=== PATIENT | female | born 1985 | race American Indian/Alaskan Native ===

== ENCOUNTER 2016-11-11 10:08 | Emergency (ER) | payer MEDICAID ==
[2016-11-11] MEDS ORDERED: D5NS 0.2% 1,000 ML IV ONE (10:53)
--- NOTE | 2016-11-11 10:56 | Emergency Department Report ---
Chief Complaint: Sickle Cell Crisis Stated Complaint: SICKLE CELL PAIN/DIZZNESS/NAUSEA Time Seen by Provider: 11/11/16 10:52 - HPI History of Present Illness: Patient is a 31-year-old female with a history of sickle cell who presents complaining of bilateral right hip pain 1 week. Patient states she was sent to the family has been given a lot of stress and she feels like that is most profound this episode. Patient also states yesterday she started experiencing intermittent dizziness yesterday. Patient described his pain as deep pain and rates the pain 9 out of 10 intensity. Patient states port located to the left upper medial arm. Patient denies nausea/vomiting/fever/abdominal pain/chest pain shortness of breath or difficulty breathing. - ROS Review of Systems: As noted in HPI - Exam Vital Signs: Vital Signs 11/11/16 10:20 Temperature 98.0 F Pulse Rate 79 Respiratory 16 Rate Blood Pressure 119/74 O2 Sat by Pulse 99 Oximetry Physical Exam: GENERAL: Alert and oriented x3, no apparent distress, Normal Gait, atraumatic. HEAD: Head is normocephalic and a-traumatic. LUNGS: Symetrical with respiration, No wheezing, no rales or crackles, CTAB. HEART: S1, S2 present, regular rate and rhythm without murmur, no rubs, no gallops. ABDOMEN: No organomegaly was noted,Positive bowel sounds, soft, and non- distended. . Nontender to palpation on all Quadrants, NO CVA tenderness. SKIN: Warm and dry, No lesions, No ulceration or induration present. MSE screening note: Focused history and physical exam performed. Due to findings the following was ordered: ED Medical Decision Making - Lab Data Result diagrams: 11/11/16 10:57 - Medical Decision Making Vital signs stable. Patient is in no respiratory or acute distress. Patient to be seen by ED physician. ED Disposition for MSE Condition: Stable
[2016-11-11 11:16] LABS: Basophils % (Auto) 0.8 % (0.0-1.8); Eosinophils % (Auto) 2.8 % (0.0-4.3); Hematocrit 31.4 % (30.3-42.9); Hemoglobin 10.6 gm/dl (10.1-14.3); Mean Corpuscular HGB Conc 34 % (30-34); Mean Corpuscular Volume 75 fl (79-97); Platelet Count 175 K/mm3 (140-440); Red Blood Count 4.17 M/mm3 (3.65-5.03); Red Cell Distribution Width 16.4 % (13.2-15.2); Reticulocyte % 4.36 % (0.78-2.58); White Blood Count 6.4 K/mm3 (4.5-11.0)
[2016-11-11 11:18] LABS: Mean Corpuscular Hemoglobin 26 pg (28-32)
[2016-11-11] MEDS ORDERED: NACL 0.9% 1000 ML 1,000 ML IV ONE (16:58)
[2016-11-11] MEDS ORDERED: DILAUDID IV ONE ×2 (16:59→18:29)
--- NOTE | 2016-11-11 17:13 | Emergency Department Report ---
HPI - General Chief Complaint: Sickle Cell Crisis Time Seen by Provider: 11/11/16 16:53 - HPI HPI: This is a 31 year-old female presents to the emergency department with complaint of bilateral hip pain that goes down towards the legs , as well as some right arm pain, but the patient says is a sickle cell pain crisis. She says this is been going on intermittently since October 25, which is also when her grandmother recently . She denies any trauma to any of these regions. She denies any fever, chest pain, shortness of breath, nausea or vomiting. However the patient does complain of some dizziness intermittently for the past 2 days. She says that it worsens with sudden movements or going from sitting to standing. Her primary care doctor is Dr. Umaña. No recent travel or sick contacts at home. Patient is on folic acid, hydroxyurea, and has been taking Tylenol and then oral Dilaudid for her discomfort without any relief. ED Past Medical Hx - Past Medical History Hx Hypertension: No Hx Congestive Heart Failure: No Hx Diabetes: No Hx Renal Disease: No Hx Sickle Cell Disease: Yes Hx Seizures: No Hx Asthma: No Hx COPD: No - Surgical History Additional Surgical History: 2 C-sections. abdominal hernia repair. PORT LEFT UPPER ARM - Social History Smoking Status: Never Smoker Substance Use Type: Prescribed - Medications Home Medications: Home Medications Medication Instructions Recorded Confirmed Last Taken Type Folic Acid [Folvite] 1 mg PO DAILY #90 tablet 11/21/14 11/11/16 07/03/16 Rx HYDROmorphone [Dilaudid] 4 mg PO Q6H PRN #10 tablet 04/19/16 11/11/16 07/03/16 Rx oxyCODONE /ACETAMINOPHEN [Percocet 1 - 2 tab PO Q6HR PRN #14 tablet 07/22/16 Unknown Rx 5/325] ED Review of Systems ROS: Stated complaint: SICKLE CELL PAIN/DIZZNESS/NAUSEA Other details as noted in HPI Comment: All other systems reviewed and negative Constitutional: denies: chills, fever Eyes: denies: eye pain, eye discharge, vision change ENT: denies: ear pain, throat pain Respiratory: denies: cough, shortness of breath, wheezing Cardiovascular: denies: chest pain, palpitations Gastrointestinal: denies: abdominal pain, nausea, diarrhea Genitourinary: denies: urgency, dysuria, discharge Musculoskeletal: arthralgia, myalgia. denies: back pain, joint swelling Skin: denies: rash, lesions Neurological: other (dizziness). denies: headache, weakness Physical Exam - Physical Exam Vital Signs: Vital Signs 11/11/16 11/11/16 10:20 16:55 Temperature 98.0 F Pulse Rate 79 Respiratory 16 20 Rate Blood Pressure 119/74 O2 Sat by Pulse 99 Oximetry Physical Exam: GENERAL: The patient is well-developed well-nourished. HEENT: Normocephalic. Atraumatic. Extraocular motions are intact. Patient has moist mucous membranes. Pupils equal reactive to light bilaterally. No nystagmus. NECK: Supple. Trachea is midline. CHEST/LUNGS: Clear to auscultation. There is no respiratory distress noted. HEART/CARDIOVASCULAR: Regular. There is no tachycardia. There is no gallop rub or murmur. ABDOMEN: Abdomen is soft, nontender. Patient has normal bowel sounds. There is no abdominal distention. SKIN: There is no rash. There is no edema. There is no diaphoresis. NEURO: The patient is awake, alert, and oriented. The patient is cooperative. The patient has no focal neurologic deficits. The patient has normal speech and gait. Cranial nerves II through XII grossly intact. MUSCULOSKELETAL: There is no tenderness or deformity. There is no limitation range of motion. There is no evidence of acute injury. Muscle strength 5 out of 5 for upper and lower extremity bilaterally. Cap refill less than 2 seconds. Radial pulse +2 over 4 bilaterally. ED Course Vital Signs 11/11/16 11/11/16 10:20 16:55 Temperature 98.0 F Pulse Rate 79 Respiratory 16 20 Rate Blood Pressure 119/74 O2 Sat by Pulse 99 Oximetry ED Medical Decision Making - Lab Data Result diagrams: 11/11/16 10:57 11/11/16 17:15 - EKG Data -: EKG Interpreted by Ri EKG shows normal: sinus rhythm, axis, intervals, QRS complexes, ST-T waves Rate: normal - EKG Data When compared to previous EKG there are: previous EKG unavailable Interpretation: normal EKG - Medical Decision Making 31-year-old female presents the emergency department with bilateral leg pain and right arm pain that she believes is a sickle cell pain crisis. Patient's hemoglobin is 10.5 and her reticulocyte count is about 4, which is consistent with is not better than previous visits. Patient's vital signs are stable throughout her ED course including being afebrile. No focal, motor or sensory deficits. Patient's labs also show no electrolyte abnormalities and she has normal thyroid function. EKG does not show any signs of ST elevation RI, dysrhythmia or ischemia. Patient was given a few doses of pain medication and says she is feeling better. She has good follow-up with a primary care doctor. Her symptoms been going on since October 25 and she believes it could be related to the fact that she lost her grandmother recently. Nonetheless the patient does not have any significant abnormalities that appear to require inpatient admission at this time. She has pain medication at home if her pain starts return but she will return to the emergency department with any acute distress. She understands and agrees the plan. Patient was seen ambulatory in the emergency department and appears stable. - Differential Diagnosis sickle cell pain crisis, sickle cell anemia, orthostatic hypotension, verti Critical Care Time: No Critical care attestation.: If time is entered above; I have spent that time in minutes in the direct care of this critically ill patient, excluding procedure time. ED Disposition Clinical Impression: Sickle cell pain crisis, Dizziness Disposition: DISCHARGED TO HOME OR SELFCARE Is pt being admited?: No Does the pt Need Aspirin: No Condition: Good Instructions: Sickle Cell Crisis (ED), Dizziness (ED) Additional Instructions: Please follow-up with your primary care doctor in the next few days. Return to the emergency department with any worsening of your symptoms or any acute distress. Referrals: SRINIVAS UMAÑA MD [Primary Care Provider] - 3-5 Days Time of Disposition: 19:38
[2016-11-11] MEDS ORDERED: BENADRYL ONE (17:55)
[2016-11-11] MEDS ORDERED: ZOFRAN ONE (17:55)
[2016-11-11 18:01] LABS: Blood Urea Nitrogen 7 mg/dL (7-17); Calcium 8.8 mg/dL (8.4-10.2); Carbon Dioxide 23 mmol/L (22-30); Chloride 100.9 mmol/L (98-107); Glucose 83 mg/dL (65-100); Potassium 4.2 mmol/L (3.6-5.0); Sodium 138 mmol/L (137-145)
[2016-11-11] MEDS ORDERED: BENADRYL IV ONE (18:01)
[2016-11-11] MEDS ORDERED: ZOFRAN IV ONE (18:01)
[2016-11-11 18:02] LABS: Anion Gap 18 mmol/L
[2016-11-11 19:42] VITALS: BP 118/80
[2016-11-11] MEDS ORDERED: FLUSH HEPARIN IV ONE (19:50)
== END 2016-11-11 19:59 | disposition home or self-care (01) ==
LOC: ED 10:08
DX: D57.00 Hb-SS disease with crisis, unspecified (principal); R42 Dizziness and giddiness
CPT/HCPCS: 36415; 80048; 84443; 85025; 85045; 93005; 93010; 96361; 96374; 96375; 96376; 99283; J1170; J1200; J1642; J2405; J7030

== ENCOUNTER 2017-03-24 19:04 | Emergency (ER) | payer MEDICAID ==
[2017-03-24 20:42] LABS: Bacteria,Urine 1+ /HPF (Negative); Bilirubin,Urine NEG (Negative); Blood,Urine MOD (Negative); Ketones,Urine NEG (Negative); Leukocyte Esterase,Urine NEG (Negative); Mucus,Urine FEW /HPF; Nitrite,Urine NEG (Negative); Protein,Urine <15 mg/dL mg/dL (Negative); Urobilinogen,Urine < 2.0 mg/dL (<2.0)
--- NOTE | 2017-03-24 22:56 | Emergency Department Report ---
ED HPI - General Chief complaint: Urogenital-Female Stated complaint: Cramping Time Seen by Provider: 03/24/17 21:45 Source: patient Mode of arrival: Ambulatory Limitations: No Limitations - History of Present Illness Initial comments: This is a 32-year-old female well-nourished with nontoxic or ill in appearance that presents with cramping for 6 days. Patient states she may be or is having a urinary tract infection. Patient and I think a urinary test at home. Patient denies any dysuria, polyuria, vaginal bleeding , nausea vomiting, abdominal pain, pelvic pain, back pain. Patient has a history of 2 pregnancies with similar symptoms of cramping. She denies any chest pain or shortness of breath. Agrees to NSAIDs allergies. Denies any past medical hx. LMP 02/05/2017. Complaint: other (abdmoninal cramping) -: Gradual, days(s) Location: abdomen Radiation: none Severity: mild Quality: other (cramping) Consistency: intermittent Improves with: none Worsens with: none Associated symptoms: denies other symptoms. denies: nausea/vomiting, vaginal bleeding, vaginal discharge, abdominal pain, dysuria, headache, vision changes, malaise, dysparuenia, rash, seizure, shortness of breath, syncope, weakness Vaginal bleeding: none OB History - Previous Pregnancies: no complications Pre-lazaro care: none (Bc is not sure if active ) - Related Data Previous Rx's Medication Instructions Recorded Last Taken Type Folic Acid [Folvite] 1 mg PO DAILY #90 tablet 11/21/14 07/03/16 Rx HYDROmorphone [Dilaudid] 4 mg PO Q6H PRN #10 tablet 04/19/16 07/03/16 Rx oxyCODONE /ACETAMINOPHEN [Percocet 1 - 2 tab PO Q6HR PRN #14 tablet 07/22/16 Unknown Rx 5/325] Allergies Allergy/AdvReac Type Severity Reaction Status Date / Time NSAIDS (Non-Steroidal Allergy Hives Verified 11/11/16 10:27 Anti-Inflamma ED Review of Systems ROS: Stated complaint: Cramping Other details as noted in HPI Constitutional: denies: chills, fever Eyes: denies: eye pain, eye discharge, vision change ENT: denies: ear pain, throat pain Respiratory: denies: cough, shortness of breath, wheezing Cardiovascular: denies: chest pain, palpitations Endocrine: no symptoms reported Gastrointestinal: denies: abdominal pain, nausea, diarrhea Genitourinary: denies: urgency, dysuria, discharge Musculoskeletal: denies: back pain, joint swelling, arthralgia Skin: denies: rash, lesions Neurological: denies: headache, weakness, paresthesias Psychiatric: denies: anxiety, depression Hematological/Lymphatic: denies: easy bleeding, easy bruising ED Past Medical Hx - Past Medical History Hx Hypertension: No Hx Congestive Heart Failure: No Hx Diabetes: No Hx Renal Disease: No Hx Sickle Cell Disease: Yes Hx Seizures: No Hx Asthma: No Hx COPD: No - Surgical History Additional Surgical History: 2 C-sections. abdominal hernia repair. PORT LEFT UPPER ARM - Social History Smoking Status: Never Smoker Substance Use Type: None - Medications Home Medications: Home Medications Medication Instructions Recorded Confirmed Last Taken Type Folic Acid [Folvite] 1 mg PO DAILY #90 tablet 11/21/14 11/11/16 07/03/16 Rx HYDROmorphone [Dilaudid] 4 mg PO Q6H PRN #10 tablet 04/19/16 11/11/16 07/03/16 Rx oxyCODONE /ACETAMINOPHEN [Percocet 1 - 2 tab PO Q6HR PRN #14 tablet 07/22/16 Unknown Rx 5/325] ED Physical Exam - General Limitations: No Limitations General appearance: alert, in no apparent distress - Head Head exam: Present: atraumatic, normocephalic - Eye Eye exam: Present: normal appearance, PERRL, EOMI Pupils: Present: normal accommodation - ENT ENT exam: Present: normal exam, normal orophraynx, mucous membranes moist, TM's normal bilaterally, normal external ear exam - Neck Neck exam: Present: normal inspection, full ROM. Absent: tenderness, meningismus, lymphadenopathy, thyromegaly - Respiratory Respiratory exam: Present: normal lung sounds bilaterally. Absent: respiratory distress, wheezes, rales, rhonchi, stridor - Cardiovascular Cardiovascular Exam: Present: regular rate, normal rhythm, normal heart sounds. Absent: bradycardia, tachycardia, irregular rhythm, systolic murmur, diastolic murmur, rubs, gallop - GI/Abdominal GI/Abdominal exam: Present: soft, normal bowel sounds. Absent: distended, guarding, rebound, rigid, diminished bowel sounds, hyperactive bowel sounds, hypoactive bowel sounds, organomegaly, mass, bruit, pulsatile mass, hernia - Expanded GI/Abdominal Exam Expanded GI/Abdominal exam: Absent: psoas sign, obturator sign, heel tap sign, Wharton's sign, Rovsing's sign, tenderness at Mcburney's Point, ascites - Extremities Exam Extremities exam: Present: normal inspection, full ROM, normal capillary refill. Absent: tenderness, pedal edema, joint swelling, calf tenderness - Back Exam Back exam: Present: normal inspection, full ROM. Absent: tenderness, CVA tenderness (R), CVA tenderness (L), muscle spasm, paraspinal tenderness, vertebral tenderness, rash noted - Neurological Exam Neurological exam: Present: alert, oriented X3, CN II-XII intact, normal gait - Psychiatric Psychiatric exam: Present: normal affect, normal mood - Skin Skin exam: Present: warm, dry, intact, normal color. Absent: rash ED Course Vital Signs 03/24/17 20:10 Temperature 99.1 F Pulse Rate 94 H Respiratory 18 Rate Blood Pressure 129/84 O2 Sat by Pulse 100 Oximetry ED Medical Decision Making - Medical Decision Making Ed course: This is a 32-year-old female that has a positive HCG and Natanael 1- after my physical exam, a UA, HCG, and Natanael serum has been obtained 2- Patient was notified of then all the lab results. 3- Patient was instructed to f/u with her OBGYN in 24 hours. 4- at time time of discharge, the patient does not seem toxic or ill in appearance. No acute signs of distress noted. Patient agrees to discharge treatment plan of care. No further questions noted by the patient. 5- patient was instructed to observe signs and symptoms of bleeding and present report back to emergency room Critical care attestation.: If time is entered above; I have spent that time in minutes in the direct care of this critically ill patient, excluding procedure time. ED Disposition Clinical Impression: Qualifiers: Weeks of gestation: unspecified Qualified Code(s): Z33.1 - state, incidental Disposition: DISCHARGED TO HOME OR SELFCARE Is pt being admited?: No Does the pt Need Aspirin: No Condition: Stable Instructions: (ED) Additional Instructions: Observe signs and symptoms of bleeding and present report back to emergency room Follow-up with your ham trimmer in 24 hours Referrals: PRIMARY CARE, [Primary Care Provider] - 3-5 Days ALBERTO ESPINAL MD [Referring] - 3-5 Days [facility] [Outside] - 3-5 Days [facility] [Outside] - 3-5 Days Forms: Work/School Release Form(ED)
[2017-03-24 23:52] VITALS: BP 126/82
== END 2017-03-24 23:52 | disposition home or self-care (01) ==
LOC: ED 19:04
DX: Z33.1 Pregnant state, incidental (principal)
CPT/HCPCS: 36415; 81001; 81025; 84702; 84703; 99283

== ENCOUNTER 2017-06-25 20:31 | Emergency (ER) | payer MEDICAID ==
[2017-06-25] MEDS ORDERED: D5NS 0.2% 1,000 ML IV SCH (22:00)
[2017-06-25 22:09] LABS: Basophils % (Auto) 0.9 % (0.0-1.8); Eosinophils % (Auto) 3.2 % (0.0-4.3); Hematocrit 31.4 % (30.3-42.9); Hemoglobin 10.7 gm/dl (10.1-14.3); Mean Corpuscular HGB Conc 34 % (30-34); Mean Corpuscular Volume 75 fl (79-97); Platelet Count 206 K/mm3 (140-440); Red Blood Count 4.16 M/mm3 (3.65-5.03); Red Cell Distribution Width 17.4 % (13.2-15.2); Reticulocyte % 4.99 % (0.78-2.58); White Blood Count 7.9 K/mm3 (4.5-11.0)
[2017-06-25 22:11] LABS: Mean Corpuscular Hemoglobin 26 pg (28-32)
[2017-06-26] MEDS ORDERED: NACL 0.9% 1000 ML 1,000 ML IV ONE (02:14)
[2017-06-26] MEDS ORDERED: MORPHINE IV ONE ×2 (02:14→03:58)
[2017-06-26] MEDS ORDERED: ZOFRAN IV ONE (02:14)
--- NOTE | 2017-06-26 02:18 | Emergency Department Report ---
ED General Adult HPI - General Chief complaint: Sickle Cell Crisis Stated complaint: SICKLE CELL PAIN Time Seen by Provider: 06/26/17 02:04 Source: patient Mode of arrival: Ambulatory Limitations: No Limitations - History of Present Illness Initial comments: 32 years old female history of sickle cell disease coming with sickle cell crisis complaining mainly of back pain and extremity pain. Denied any nausea or vomiting no diarrhea no chest pain no other complaint. -: Gradual Location: back, upper extremity, lower extremity Severity scale (0 -10): 8 Quality: sharp - Related Data Previous Rx's Medication Instructions Recorded Last Taken Type Folic Acid [Folvite] 1 mg PO DAILY #90 tablet 11/21/14 07/03/16 Rx HYDROmorphone [Dilaudid] 4 mg PO Q6H PRN #10 tablet 04/19/16 07/03/16 Rx oxyCODONE /ACETAMINOPHEN [Percocet 1 - 2 tab PO Q6HR PRN #14 tablet 07/22/16 Unknown Rx 5/325] Ondansetron [Zofran Odt] 4 mg PO Q8HR PRN #14 tab.rapdis 06/26/17 Unknown Rx oxyCODONE /ACETAMINOPHEN [Percocet 1 tab PO Q6HR PRN #10 tablet 06/26/17 Unknown Rx 5/325] Allergies Allergy/AdvReac Type Severity Reaction Status Date / Time NSAIDS (Non-Steroidal Allergy Hives Verified 11/11/16 10:27 Anti-Inflamma ED Review of Systems ROS: Stated complaint: SICKLE CELL PAIN Other details as noted in HPI Comment: All other systems reviewed and negative Respiratory: denies: cough, shortness of breath Cardiovascular: denies: chest pain Gastrointestinal: denies: abdominal pain, nausea, vomiting, diarrhea, constipation Musculoskeletal: back pain ED Past Medical Hx - Past Medical History Previous Medical History?: Yes Hx Hypertension: No Hx Congestive Heart Failure: No Hx Diabetes: No Hx Renal Disease: No Hx Sickle Cell Disease: Yes Hx Seizures: No Hx Asthma: No Hx COPD: No - Surgical History Past Surgical History?: No Additional Surgical History: 2 C-sections. abdominal hernia repair. PORT LEFT UPPER ARM - Social History Smoking Status: Never Smoker Substance Use Type: None - Medications Home Medications: Home Medications Medication Instructions Recorded Confirmed Last Taken Type Folic Acid [Folvite] 1 mg PO DAILY #90 tablet 11/21/14 11/11/1616 Rx HYDROmorphone [Dilaudid] 4 mg PO Q6H PRN #10 tablet 04/19/16 11/11/16 07/03/16 Rx oxyCODONE /ACETAMINOPHEN [Percocet 1 - 2 tab PO Q6HR PRN #14 tablet 07/22/16 Unknown Rx 5/325] Ondansetron [Zofran Odt] 4 mg PO Q8HR PRN #14 tab.rapdis 06/26/17 Unknown Rx oxyCODONE /ACETAMINOPHEN [Percocet 1 tab PO Q6HR PRN #10 tablet 06/26/17 Unknown Rx 5/325] ED Physical Exam - General Limitations: No Limitations General appearance: alert, in no apparent distress - Head Head exam: Present: normocephalic - Eye Eye exam: Present: normal appearance - ENT ENT exam: Present: normal exam - Neck Neck exam: Present: normal inspection - Respiratory Respiratory exam: Present: normal lung sounds bilaterally. Absent: wheezes, rales, rhonchi - Cardiovascular Cardiovascular Exam: Present: tachycardia - GI/Abdominal GI/Abdominal exam: Present: soft. Absent: tenderness, guarding, rebound - Extremities Exam Extremities exam: Present: normal inspection, full ROM, normal capillary refill. Absent: tenderness - Back Exam Back exam: Present: normal inspection, full ROM. Absent: tenderness, CVA tenderness (R), CVA tenderness (L), muscle spasm, paraspinal tenderness - Neurological Exam Neurological exam: Present: alert, oriented X3, CN II-XII intact - Skin Skin exam: Present: warm, normal color ED Course Vital Signs 06/25/17 06/26/17 21:39 01:56 Temperature 99.2 F Pulse Rate 104 H Respiratory 18 14 Rate Blood Pressure 130/73 O2 Sat by Pulse 99 Oximetry - Reevaluation(s) Reevaluation #1: 06/26/17 04:34 Patient stated that she is feeling much better. I advised to follow-up with her primary care physician for further management. ED Medical Decision Making - Lab Data Result diagrams: 06/25/17 21:59 06/26/17 02:40 Critical care attestation.: If time is entered above; I have spent that time in minutes in the direct care of this critically ill patient, excluding procedure time. ED Disposition Clinical Impression: Sickle cell pain crisis Disposition: DC-01 TO HOME OR SELFCARE Is pt being admited?: No Condition: Stable Instructions: Sickle Cell Crisis (ED) Referrals: LARA NEWTON MD [Primary Care Provider] - 3-5 Days
[2017-06-26] MEDS ORDERED: BENADRYL IV ONE (03:00)
[2017-06-26] MEDS ORDERED: BENADRYL ONE (03:01)
[2017-06-26 03:07] LABS: Alanine Aminotransferase 38 units/L (7-56); Albumin 4.3 g/dL (3.9-5); Albumin/Globulin Ratio 1.4 %; Alkaline Phosphatase 97 units/L (35-129); Anion Gap 17 mmol/L; Blood Urea Nitrogen 6 mg/dL (7-17); Calcium 8.8 mg/dL (8.4-10.2); Carbon Dioxide 23 mmol/L (22-30); Chloride 102.4 mmol/L (98-107); Glucose 91 mg/dL (65-100); Sodium 138 mmol/L (137-145); Total Protein 7.4 g/dL (6.3-8.2)
[2017-06-26] MEDS ORDERED: MORPHINE ONE (04:00)
[2017-06-26] MEDS ORDERED: FLUSH HEPARIN IV ONE (04:38)
[2017-06-26 04:52] VITALS: BP 113/62
== END 2017-06-26 04:52 | disposition home or self-care (01) ==
LOC: ED 20:31
DX: D57.00 Hb-SS disease with crisis, unspecified (principal); Z88.8 Allergy status to other drugs, medicaments and biological substances
CPT/HCPCS: 36415; 80053; 85025; 85045; 96361; 96374; 96375; 96376; 99283; J1200; J1642; J2270; J2405; J7030

== ENCOUNTER 2017-10-17 08:57 | Emergency (ER) | payer MEDICAID ==
[2017-10-17] MEDS ORDERED: D5NS 0.2% 1,000 ML IV SCH (10:00)
[2017-10-17 18:07] LABS: Basophils % (Auto) 0.5 % (0.0-1.8); Eosinophils # (Auto) 0.3 K/mm3 (0.0-0.4); Eosinophils % (Auto) 3.5 % (0.0-4.3); Hemoglobin 10.4 gm/dl (10.1-14.3); Lymphocytes # (Auto) 2.9 K/mm3 (1.2-5.4); Lymphocytes % (Auto) 37.9 % (13.4-35.0); Mean Corpuscular HGB Conc 35 % (30-34); Mean Corpuscular Hemoglobin 26 pg (28-32); Mean Corpuscular Volume 76 fl (79-97); Monocytes # (Auto) 0.8 K/mm3 (0.0-0.8); Platelet Count 234 K/mm3 (140-440); Red Blood Count 3.96 M/mm3 (3.65-5.03); Red Cell Distribution Width 17.6 % (13.2-15.2)
[2017-10-17] MEDS ORDERED: ZOFRAN IV ONE (22:45)
[2017-10-17] MEDS ORDERED: DILAUDID IV ONE (22:45)
[2017-10-17] MEDS ORDERED: BENADRYL IV ONE (22:47)
[2017-10-18] MEDS ORDERED: DILAUDID ONE (00:31)
--- NOTE | 2017-10-18 00:55 | Emergency Department Report ---
ED General Adult HPI - General Chief complaint: Sickle Cell Crisis Stated complaint: HIP PAIN SICKEL CELL Time Seen by Provider: 10/17/17 22:40 Source: patient Mode of arrival: Ambulatory Limitations: No Limitations - History of Present Illness Initial comments: 32-year-old female with a past medical history of sickle cell SC presents to the hospital complaining of bilateral hip pain 1 week. Similar symptoms in the past with sickle cell crisis. Patient was taken Tylenol but then started taking her Dilaudid 2-4 mg every 6 hours without improvement. Pain worsened today and associated with limping. Patient states she has been ruled out for avascular necrosis in the past. No recent trauma reported. No fever or weakness. Steeping Press Tender: Dr. García Severity scale (0 -10): 9 - Related Data Previous Rx's Medication Instructions Recorded Last Taken Type Folic Acid [Folvite] 1 mg PO DAILY #90 tablet 11/21/14 07/03/16 Rx HYDROmorphone [Dilaudid] 4 mg PO Q6H PRN #10 tablet 04/19/16 07/03/16 Rx oxyCODONE /ACETAMINOPHEN [Percocet 1 - 2 tab PO Q6HR PRN #14 tablet 07/22/16 Unknown Rx 5/325] Ondansetron [Zofran Odt] 4 mg PO Q8HR PRN #14 tab.rapdis 06/26/17 Unknown Rx oxyCODONE /ACETAMINOPHEN [Percocet 1 tab PO Q6HR PRN #10 tablet 06/26/17 Unknown Rx 5/325] Allergies Allergy/AdvReac Type Severity Reaction Status Date / Time NSAIDS (Non-Steroidal Allergy Hives Verified 11/11/16 10:27 Anti-Inflamma ED Review of Systems ROS: Stated complaint: HIP PAIN SICKEL CELL Other details as noted in HPI Comment: All other systems reviewed and negative Other: Constitutional: No fevers chills Eyes: No eye pain visual changes ENT: No ear pain or throat pain Neck: Denies pain Respiratory: Denies cough wheezing shortness of breath Cardiovascular: Denies chest pain, palpitations, syncope GI: Denies abdominal pain, nausea, vomiting, diarrhea : Denies dysuria Musculoskeletal: as per hpi Skin: Denies rash, lesions, erythema Neurologic: Denies headache, numbness, weakness Psychiatric: Denies suicidal ideation, hallucinations ED Past Medical Hx - Past Medical History Hx Hypertension: No Hx Congestive Heart Failure: No Hx Diabetes: No Hx Renal Disease: No Hx Sickle Cell Disease: Yes Hx Seizures: No Hx Asthma: No Hx COPD: No - Surgical History Additional Surgical History: 2 C-sections. abdominal hernia repair. PORT LEFT UPPER ARM. ectopic and left salpingectomy - Social History Smoking Status: Never Smoker Substance Use Type: None - Medications Home Medications: Home Medications Medication Instructions Recorded Confirmed Last Taken Type Folic Acid [Folvite] 1 mg PO DAILY #90 tablet 11/21/14 11/11/16 07/03/16 Rx HYDROmorphone [Dilaudid] 4 mg PO Q6H PRN #10 tablet 04/19/16 11/11/16 07/03/16 Rx oxyCODONE /ACETAMINOPHEN [Percocet 1 - 2 tab PO Q6HR PRN #14 tablet 07/22/16 Unknown Rx 5/325] Ondansetron [Zofran Odt] 4 mg PO Q8HR PRN #14 tab.rapdis 06/26/17 Unknown Rx oxyCODONE /ACETAMINOPHEN [Percocet 1 tab PO Q6HR PRN #10 tablet 06/26/17 Unknown Rx 5/325] ED Physical Exam - General Limitations: No Limitations - Other Other exam information: General: No limitations, patient is alert in no acute distress Head exam: Atraumatic, normocephalic Eyes exam: Normal appearance, pupils equal reactive to light, extraocular movements intact ENT: Moist mucous membrane, normal oropharynx Neck exam: Normal inspection, full range of motion, no meningismus nontender Respiratory exam: Clear to auscultation bilateral, no wheezes, rales, crackles Cardiovascular: Normal rate and rhythm, normal heart sounds Abdomen: Soft, nondistended, and nontender, with normal bowel sounds, no rebound, or guarding Extremity: Full range of motion normal inspection no deformity. Mild pain with movement of bilateral hips Back: Normal Inspection, full range of motion, no tenderness Neurologic: Alert, oriented x3, cranial nerves intact, no motor or sensory deficit Psychiatric: normal affect, normal mood Skin: Warm, dry, intact ED Course Vital Signs 10/17/17 10/17/17 10/17/17 09:03 17:40 20:23 Temperature 98.6 F 98.5 F Pulse Rate 86 79 89 Respiratory 20 18 Rate Blood Pressure 110/71 120/68 122/68 Blood Pressure [Left] O2 Sat by Pulse 98 100 100 Oximetry 10/17/17 10/17/17 10/17/17 22:49 22:59 23:00 Temperature 98.6 F Pulse Rate 88 Respiratory 16 Rate Blood Pressure 107/68 111/61 Blood Pressure 107/68 [Left] O2 Sat by Pulse 100 100 Oximetry 10/17/17 10/17/17 10/17/17 23:15 23:30 23:45 Temperature Pulse Rate Respiratory Rate Blood Pressure 111/61 115/66 111/61 Blood Pressure [Left] O2 Sat by Pulse 100 100 100 Oximetry 10/18/17 10/18/17 10/18/17 00:00 00:15 00:30 Temperature Pulse Rate Respiratory 16 Rate Blood Pressure 118/69 118/69 109/68 Blood Pressure [Left] O2 Sat by Pulse 100 100 100 Oximetry 10/18/17 10/18/17 10/18/17 00:36 00:45 01:00 Temperature Pulse Rate Respiratory 16 Rate Blood Pressure 109/68 110/65 Blood Pressure [Left] O2 Sat by Pulse 100 100 Oximetry 10/18/17 10/18/17 10/18/17 01:15 01:30 01:45 Temperature Pulse Rate Respiratory Rate Blood Pressure 110/65 115/65 110/65 Blood Pressure [Left] O2 Sat by Pulse 100 99 99 Oximetry 10/18/17 10/18/17 10/18/17 02:00 02:15 02:30 Temperature Pulse Rate Respiratory Rate Blood Pressure 116/69 115/65 117/63 Blood Pressure [Left] O2 Sat by Pulse 100 99 100 Oximetry 10/18/17 10/18/17 10/18/17 02:45 03:00 03:15 Temperature Pulse Rate Respiratory Rate Blood Pressure 116/69 108/67 108/67 Blood Pressure [Left] O2 Sat by Pulse 100 100 100 Oximetry - Reevaluation(s) Reevaluation #1: 10/18/17 01:06 IV fluids, pain medication and nausea meds initiated Reevaluation #2: 10/18/17 01:47 Pain improving after initial Dilaudid 1 mg additional Dilaudid ordered. Fluids in progress ED Medical Decision Making - Lab Data Result diagrams: 10/17/17 17:53 Lab Results 10/17/17 Range/Units 17:53 WBC 7.7 (4.5-11.0) K/mm3 RBC 3.96 (3.65-5.03) M/mm3 Hgb 10.4 (10.1-14.3) gm/dl Hct 30.0 L (30.3-42.9) % MCV 76 L (79-97) fl MCH 26 L (28-32) pg MCHC 35 H (30-34) % RDW 17.6 H (13.2-15.2) % Plt Count 234 (140-440) K/mm3 Lymph % (Auto) 37.9 H (13.4-35.0) % [place] % (Auto) 10.0 H (0.0-7.3) % Eos % (Auto) 3.5 (0.0-4.3) % Baso % (Auto) 0.5 (0.0-1.8) % Lymph # 2.9 (1.2-5.4) K/mm3 [place] # 0.8 (0.0-0.8) K/mm3 Eos # 0.3 (0.0-0.4) K/mm3 Baso # 0.0 (0.0-0.1) K/mm3 Seg Neutrophils % 48.1 (40.0-70.0) % Seg Neutrophils # 3.7 (1.8-7.7) K/mm3 Percent Retic 4.55 H (0.78-2.58) % - Medical Decision Making No signs of fever, leukocytosis, H&H within normal range. Increased reticulocyte count. Pain improving with medication Will be discharged to continue current regimen and follow up with her emt basic - Differential Diagnosis sickle cell crisis, anemia, aplastic crisis, avascular necrosis, infection Critical Care Time: No Critical care attestation.: If time is entered above; I have spent that time in minutes in the direct care of this critically ill patient, excluding procedure time. ED Disposition Clinical Impression: Sickle cell pain crisis Disposition: TO HOME OR SELFCARE Is pt being admited?: No Does the pt Need Aspirin: No Condition: Stable Instructions: Sickle Cell Crisis (ED) Additional Instructions: Continue current medication. Follow-up with your emt basic. Return if symptoms worsen. Referrals: MD radha [Other] - 2-3 Days Time of Disposition: 03:20
[2017-10-18 03:21] VITALS: BP 108/67
[2017-10-18] MEDS ORDERED: FLUSH HEPARIN IV ONE (03:21)
== END 2017-10-18 03:20 | disposition home or self-care (01) ==
LOC: ED 08:57
DX: D57.00 Hb-SS disease with crisis, unspecified (principal); Z88.6 Allergy status to analgesic agent
CPT/HCPCS: 36415; 85025; 85045; 96361; 96374; 96375; 99283; J1170; J1200; J1642; J2405

== ENCOUNTER 2018-04-17 19:19 | Emergency (ER) | payer MEDICAID ==
[2018-04-17 19:57] LABS: Basophils % (Auto) 0.5 % (0.0-1.8); Eosinophils # (Auto) 0.2 K/mm3 (0.0-0.4); Eosinophils % (Auto) 3.2 % (0.0-4.3); Hematocrit 31.2 % (30.3-42.9); Hemoglobin 10.4 gm/dl (10.1-14.3); Lymphocytes # (Auto) 3.1 K/mm3 (1.2-5.4); Lymphocytes % (Auto) 41.7 % (13.4-35.0); Mean Corpuscular HGB Conc 33 % (30-34); Mean Corpuscular Volume 76 fl (79-97); Monocytes # (Auto) 0.9 K/mm3 (0.0-0.8); Monocytes % (Auto) 11.6 % (0.0-7.3); Platelet Count 289 K/mm3 (140-440); Red Blood Count 4.13 M/mm3 (3.65-5.03); Red Cell Distribution Width 17.6 % (13.2-15.2)
[2018-04-17 19:59] LABS: Mean Corpuscular Hemoglobin 25 pg (28-32)
[2018-04-17 20:15] LABS: Alanine Aminotransferase 54 units/L (7-56); Albumin 4.5 g/dL (3.9-5); BUN/Creatinine Ratio 18; Blood Urea Nitrogen 9 mg/dL (7-17); Calcium 8.9 mg/dL (8.4-10.2); Hemolysis Index 8
[2018-04-17 21:29] LABS: HCG Qualitative,Urine Negative (Negative)
[2018-04-17 21:31] LABS: Bilirubin,Urine NEG (Negative); Blood,Urine NEG (Negative); Color,Urine Yellow (Yellow); Protein,Urine <15 mg/dL mg/dL (Negative); WBC,Urine < 1.0 /HPF (0.0-6.0)
--- NOTE | 2018-04-17 21:32 | Emergency Department Report ---
ED Chest Pain HPI - General Chief Complaint: Chest Pain Stated Complaint: CP, SICKLE CELL PAIN Time Seen by Provider: 04/17/18 21:20 Source: patient Mode of arrival: Ambulatory Limitations: No Limitations - History of Present Illness Initial Comments: Ms. Agee is 33 yo female with hx of Hgb SC disease. She has had mild right sided chest pain for 3 days. No fever no cough. Did improve with Tylenol and home Dilaudid. NO leg pain. MD Complaint: chest pain -: Gradual, days(s) (3) Onset: during rest Pain Location: right chest Pain Radiation: back Severity: moderate Quality: aching, sharp Consistency: intermittent Improves With: other (Dilaudid home med) re: denies: nausea, vomting, diaphoresis Other Symptoms: denies: cough, fever, syncope, rash, acid taste in mouth, leg swelling, palpitations, burping - Related Data Previous Rx's Medication Instructions Recorded Last Taken Type Folic Acid [Folvite] 1 mg PO DAILY #90 tablet 11/21/14 07/03/16 Rx HYDROmorphone [Dilaudid] 4 mg PO Q6H PRN #10 tablet 04/19/16 07/03/16 Rx oxyCODONE /ACETAMINOPHEN [Percocet 1 - 2 tab PO Q6HR PRN #14 tablet 07/22/16 Unknown Rx 5/325] Ondansetron [Zofran Odt] 4 mg PO Q8HR PRN #14 tab.rapdis 06/26/17 Unknown Rx oxyCODONE /ACETAMINOPHEN [Percocet 1 tab PO Q6HR PRN #10 tablet 06/26/17 Unknown Rx 5/325] Allergies Allergy/AdvReac Type Severity Reaction Status Date / Time NSAIDS (Non-Steroidal Allergy Hives Verified 04/17/18 19:35 Anti-Inflamma vancomycin Allergy Itching Verified 04/17/18 19:35 Heart Score - HEART Score History: Slightly suspicious EKG: Normal Age: < 45 Risk factors: No known risk factors Troponin: < normal limit HEART Score: 0 ED Review of Systems ROS: Stated complaint: CP, SICKLE CELL PAIN Other details as noted in HPI Comment: All other systems reviewed and negative Constitutional: denies: chills, fever Respiratory: denies: cough, shortness of breath, wheezing Endocrine: no symptoms reported Gastrointestinal: denies: abdominal pain, nausea, diarrhea ED Past Medical Hx - Past Medical History Hx Hypertension: No Hx Congestive Heart Failure: No Hx Diabetes: No Hx Renal Disease: No Hx Sickle Cell Disease: Yes Hx Seizures: No Hx Asthma: No Hx COPD: No - Surgical History Additional Surgical History: 2 C-sections. abdominal hernia repair. PORT LEFT UPPER ARM. ectopic and left salpingectomy - Social History Smoking Status: Never Smoker Substance Use Type: None - Medications Home Medications: Home Medications Medication Instructions Recorded Confirmed Last Taken Type Folic Acid [Folvite] 1 mg PO DAILY #90 tablet 11/21/14 11/11/16 07/03/16 Rx HYDROmorphone [Dilaudid] 4 mg PO Q6H PRN #10 tablet 04/19/16 11/11/16 07/03/16 Rx oxyCODONE /ACETAMINOPHEN [Percocet 1 - 2 tab PO Q6HR PRN #14 tablet 07/22/16 Unknown Rx 5/325] Ondansetron [Zofran Odt] 4 mg PO Q8HR PRN #14 tab.rapdis 06/26/17 Unknown Rx oxyCODONE /ACETAMINOPHEN [Percocet 1 tab PO Q6HR PRN #10 tablet 06/26/17 Unknown Rx 5/325] ED Physical Exam - General Limitations: No Limitations General appearance: alert, in no apparent distress - Head Head exam: Present: atraumatic, normocephalic - Eye Eye exam: Present: normal appearance - ENT ENT exam: Present: mucous membranes moist - Neck Neck exam: Present: normal inspection - Respiratory Respiratory exam: Present: normal lung sounds bilaterally. Absent: respiratory distress, wheezes, rales, rhonchi - Cardiovascular Cardiovascular Exam: Present: regular rate, normal rhythm. Absent: systolic murmur, diastolic murmur, rubs, gallop - GI/Abdominal GI/Abdominal exam: Present: soft, normal bowel sounds. Absent: distended, tenderness, guarding, rebound - Extremities Exam Extremities exam: Present: normal inspection - Back Exam Back exam: Present: normal inspection - Neurological Exam Neurological exam: Present: alert, oriented X3 - Psychiatric Psychiatric exam: Present: normal affect, normal mood - Skin Skin exam: Present: warm, dry, intact, normal color. Absent: rash ED Course Vital Signs 04/17/18 04/17/18 04/17/18 19:35 20:56 21:00 Temperature 98.7 F 97.9 F Pulse Rate 83 81 Respiratory 18 18 Rate Blood Pressure 127/77 104/69 Blood Pressure 105/74 [Right] O2 Sat by Pulse 100 100 100 Oximetry ED Medical Decision Making - Lab Data Result diagrams: 04/17/18 19:46 04/17/18 19:46 Laboratory Results - last 24 hr 04/17/18 04/17/18 04/17/18 19:46 19:46 20:43 WBC 7.5 RBC 4.13 Hgb 10.4 Hct 31.2 MCV 76 L MCH 25 L MCHC 33 RDW 17.6 H Plt Count 289 Lymph % (Auto) 41.7 H [place] % (Auto) 11.6 H Eos % (Auto) 3.2 Baso % (Auto) 0.5 Lymph # 3.1 [place] # 0.9 H Eos # 0.2 Baso # 0.0 Seg Neutrophils % 43.0 Seg Neutrophils # 3.2 Sodium 138 Potassium 4.2 Chloride 101.6 Carbon Dioxide 26 Anion Gap 15 BUN 9 Creatinine 0.5 L Estimated GFR > 60 BUN/Creatinine Ratio 18 Glucose 83 Calcium 8.9 Total Bilirubin 0.80 AST 53 H ALT 54 Alkaline Phosphatase 112 Troponin T < 0.010 Total Protein 7.7 Albumin 4.5 Albumin/Globulin Ratio 1.4 Urine HCG, Qual Negative Vital Signs - 24 hr 04/17/18 04/17/18 19:35 20:56 Temperature 98.7 F 97.9 F Pulse Rate 83 81 Respiratory 18 18 Rate Blood Pressure 127/77 Blood Pressure 105/74 [Right] O2 Sat by Pulse 100 100 Oximetry - EKG Data 04/17/18 21:31 NSR nl rate nl axis nl intervals no ST-T signs of ischemia no ST elevation rate 75 beats a minute no signs of pericarditis no evidence of heart strain - Radiology Data Radiology results: image reviewed interpreted by me: no infiltrate no PTX nl mediastinum - Medical Decision Making Ms. Agee has hx of Sickle cell dz. Presents with chest pain. NO indication of PTX, pericarditis, PE, PNA or ACS. Possible sickle cell disease crisis or chest wall pain. Recommended home medications. Dc'd home Critical care attestation.: If time is entered above; I have spent that time in minutes in the direct care of this critically ill patient, excluding procedure time. ED Disposition Clinical Impression: Chest wall pain, Sickle cell anemia Disposition: DC-01 TO HOME OR SELFCARE Is pt being admited?: No Does the pt Need Aspirin: No Condition: Stable Instructions: Chest Pain (ED) Referrals: LARA NEWTON MD [Primary Care Provider] - 3-5 Days Time of Disposition: 22:09
[2018-04-17 22:05] VITALS: BP 104/69
--- NOTE | 2018-04-17 22:22 | XRay Report ---
FINAL REPORT EXAM: XR CHEST ROUTINE 2V HISTORY: Chest Pain TECHNIQUE: Frontal and lateral chest x-ray. PRIORS: None. FINDINGS: Left PICC line tip projects over the SVC. Cardiac and mediastinal silhouette within normal limits. Lungs are normally expanded, without significant vascular congestion. No focal consolidation, pleural effusion or apparent pneumothorax. Bony thorax grossly unremarkable. IMPRESSION: 1. No acute findings.
== END 2018-04-17 22:15 | disposition home or self-care (01) ==
LOC: ED 19:19
DX: D57.1 Sickle-cell disease without crisis (principal); R07.89 Other chest pain; Z88.1 Allergy status to other antibiotic agents; Z88.8 Allergy status to other drugs, medicaments and biological substances
CPT/HCPCS: 36415; 71046; 80053; 81001; 81025; 84484; 85025; 93005; 93010

== ENCOUNTER 2019-02-12 19:28 | Emergency (ER) | payer OTHER, MEDICAID ==
--- NOTE | 2019-02-12 20:33 | Emergency Department Report ---
ED General Adult HPI - General Chief complaint: Sickle Cell Crisis Stated complaint: SICKLE CELL PAIN/LOWER BACK & HIP PAIN Time Seen by Provider: 02/12/19 20:27 Source: patient, RN notes reviewed, old records reviewed Mode of arrival: Ambulatory Limitations: No Limitations - History of Present Illness Initial comments: Primary care doctor/pasteuriser operator: Dr. Greg García This is a 35-year-old female with reported history of sickle cell disease, and q uestionable supraventricular tachycardia, intermittent. The patient reports that she is not today. The patient presents to the emergency room with her typical complaint of sickle cell pain. She describes this as having sharp aching pain on her bilateral anterior and lateral thighs, bilateral hips, and lower back. This pain has been present for one week. It is basically constant. It worsens with palpation, walking, and decreases with rest. Patient endorses minimal relief with over -the-counter acetaminophen and oral hydromorphone, prescribed by her private physician, Dr. García. Patient has no sore throat, no cough, no urinary symptoms, no abdominal pain. She reports that she has not been participating in strenuous physical activities. She reports that this feels similar to prior episodes of sickle cell crisis, only more intense. -: Gradual, days(s) Location: back, left, right, lower extremity Severity scale (0 -10): 5 Quality: aching Consistency: constant Improves with: rest Worsens with: movement - Related Data Previous Rx's Medication Instructions Recorded Last Taken Type Folic Acid [Folvite] 1 mg PO DAILY #90 tablet 11/21/14 07/03/16 Rx HYDROmorphone [Dilaudid] 4 mg PO Q6H PRN #10 tablet 04/19/16 07/03/16 Rx oxyCODONE /ACETAMINOPHEN [Percocet 1 - 2 tab PO Q6HR PRN #14 tablet 07/22/16 Unknown Rx 5/325] Ondansetron [Zofran Odt] 4 mg PO Q8HR PRN #14 tab.rapdis 06/26/17 Unknown Rx oxyCODONE /ACETAMINOPHEN [Percocet 1 tab PO Q6HR PRN #10 tablet 06/26/17 Unknown Rx 5/325] Allergies Allergy/AdvReac Type Severity Reaction Status Date / Time NSAIDS (Non-Steroidal Allergy Hives Verified 02/12/19 22:23 Anti-Inflamma vancomycin Allergy Itching Verified 02/12/19 22:23 ED Review of Systems ROS: Stated complaint: SICKLE CELL PAIN/LOWER BACK & HIP PAIN Other details as noted in HPI Constitutional: malaise. denies: fever Eyes: denies: eye discharge ENT: denies: epistaxis Respiratory: denies: cough Cardiovascular: denies: chest pain Gastrointestinal: denies: nausea Genitourinary: denies: dysuria Musculoskeletal: back pain, arthralgia, myalgia Neurological: denies: as per HPI, weakness ED Past Medical Hx - Past Medical History Previous Medical History?: Yes Hx Hypertension: No Hx Congestive Heart Failure: No Hx Diabetes: No Hx Renal Disease: No Hx Sickle Cell Disease: Yes Hx Seizures: No Hx Asthma: No Hx COPD: No - Surgical History Past Surgical History?: Yes Additional Surgical History: 2 C-sections. abdominal hernia repair. PORT LEFT UPPER ARM. ectopic and left salpingectomy - Social History Smoking Status: Never Smoker Substance Use Type: None - Medications Home Medications: Home Medications Medication Instructions Recorded Confirmed Last Taken Type Folic Acid [Folvite] 1 mg PO DAILY #90 tablet 11/21/14 11/11/16 07/03/16 Rx HYDROmorphone [Dilaudid] 4 mg PO Q6H PRN #10 tablet 04/19/16 11/11/16 07/03/16 Rx oxyCODONE /ACETAMINOPHEN [Percocet 1 - 2 tab PO Q6HR PRN #14 tablet 07/22/16 11/11/16 Unknown Rx 5/325] Ondansetron [Zofran Odt] 4 mg PO Q8HR PRN #14 tab.rapdis 06/26/17 Unknown Rx oxyCODONE /ACETAMINOPHEN [Percocet 1 tab PO Q6HR PRN #10 tablet 06/26/17 Unknown Rx 5/325] ED Physical Exam - General Limitations: No Limitations General appearance: alert, in no apparent distress - Head Head exam: Present: atraumatic, normocephalic - Eye Eye exam: Present: normal appearance, EOMI. Absent: nystagmus - ENT ENT exam: Present: normal exam, normal orophraynx, mucous membranes moist, normal external ear exam - Neck Neck exam: Present: normal inspection, full ROM. Absent: tenderness, meningismus - Respiratory Respiratory exam: Present: normal lung sounds bilaterally. Absent: respiratory distress - Cardiovascular Cardiovascular Exam: Present: regular rate, normal rhythm, normal heart sounds. Absent: bradycardia, tachycardia, irregular rhythm, systolic murmur, diastolic murmur, rubs, gallop - GI/Abdominal GI/Abdominal exam: Present: soft. Absent: distended, tenderness, guarding, rebound, rigid, pulsatile mass - Extremities Exam Extremities exam: Present: normal inspection (there is no redness, pus or streaking. The muscular compartments are soft. During thigh and hip examination, chaperoned by nurse Mandie Cartwright), full ROM, tenderness, other (2+ pulses noted in the bilateral upper, lower extremities. Compartments soft. No long bony tenderness. The pelvis is stable.). Absent: calf tenderness - Back Exam Back exam: Present: normal inspection, full ROM, paraspinal tenderness. Absent: CVA tenderness (R), CVA tenderness (L) - Neurological Exam Neurological exam: Present: alert, normal gait, other (Extraocular movements intact. Tongue midline. No facial droop. Facial sensation intact to light touch in the V1, V2, V3 distribution bilaterally. 5 and 5 strength in 4 extremities.. Sensation is intact to light touch in 4 extremities.). Absent: motor sensory deficit - Psychiatric Psychiatric exam: Present: anxious - Skin Skin exam: Present: warm, dry, intact, normal color. Absent: rash ED Course Vital Signs 02/12/19 02/12/19 02/12/19 20:20 21:30 23:09 Temperature 98.2 F 98.0 F Pulse Rate 96 H 95 H Respiratory 18 16 18 Rate Blood Pressure 130/71 113/73 [Left] O2 Sat by Pulse 99 96 Oximetry - Reevaluation(s) Reevaluation #1: 02/12/19 20:33 [place] [facility] aware 01/07/2019 1 12/23/2018 HYDROMORPHONE 8 MG TABLET 7.0 7 DO COL [id number] THE P ([id number]) 0 32.0 MME Comm Ins [place] 01/07/2019 1 12/23/2018 HYDROMORPHONE 8 MG TABLET 173.0 7 DO COL [id number] THE P ([id number]) 1 790.86 MME Private Pay [place] 12/23/2018 1 12/23/2018 NARCAN 4 MG NASAL SPRAY 2.0 30 JA O'N [id number] THE P ([id number]) 0 Comm Ins [place] Reevaluation #2: 02/12/19 21:29 Differential diagnosis, including but not limited to: Sickle cell crisis Assessment and plan: 33-year-old female with recurrent episode of clinical sickle cell crisis. The patient is afebrile with reassuring vital signs with a benign physical examination. She denies urinary symptoms and pulmonary symptoms. She has appropriate strength and sensation in the lower extremities, therefore, epidural compression syndrome quite unlikely, and the patient is also ambulatory. There is no pulsatile abdominal mass, therefore, AAA is quite unlikely. Screening laboratory studies pending at this time. We will treat the patient's pain aggressively with intramuscular hydromorphone. She endorses that she is not today, and indicates that she has not delivered or given within the past 6 weeks. Reevaluation #3: 02/12/19 21:50 Still endorsing pain. Additional hydromorphone has been ordered. Reevaluation #4: 02/12/19 23:16 Patient reevaluated multiple times. She reports that her comfort level is acceptable. She is amenable to one more round of intramuscular pain medication, and she reports that she feels suitable for discharge. ED Medical Decision Making - Lab Data Result diagrams: 02/12/19 20:11 02/12/19 20:11 Critical care attestation.: If time is entered above; I have spent that time in minutes in the direct care of this critically ill patient, excluding procedure time. ED Disposition Clinical Impression: Sickle cell pain crisis Disposition: DC-01 TO HOME OR SELFCARE Is pt being admited?: No Does the pt Need Aspirin: No Condition: Stable Instructions: Sickle Cell Crisis (ED) Additional Instructions: Continue outpatient pain medications. Rest, avoid heavy lifting, and avoid strenuous physical activities. follow up with her pasteuriser operator or the listed music therapy specialist within the next 7-10 days. Continue the hydromorphone that was prescribed for the patient by her private pasteuriser operator. Please return to the emergency room right away with new pain, worsened pain, migration of pain, productive vomiting, change in mental status, confusion, new, worsening or different symptoms. Referrals: ROXY EMANUEL MD [Staff Physician] - 3-5 Days
[2019-02-12] MEDS ORDERED: DILAUDID IM ONE ×3 (20:37→23:16)
[2019-02-12 20:38] LABS: Basophils # (Auto) 0.1 K/mm3 (0.0-0.1); Basophils % (Auto) 1.1 % (0.0-1.8); Eosinophils # (Auto) 0.3 K/mm3 (0.0-0.4); Eosinophils % (Auto) 2.6 % (0.0-4.3); Hematocrit 32.3 % (30.3-42.9); Hemoglobin 11.1 gm/dl (10.1-14.3); Lymphocytes % (Auto) 28.1 % (13.4-35.0); Mean Corpuscular HGB Conc 35 % (30-34); Mean Corpuscular Volume 79 fl (79-97); Monocytes % (Auto) 9.7 % (0.0-7.3); Platelet Count 349 K/mm3 (140-440); Red Blood Count 4.08 M/mm3 (3.65-5.03); Red Cell Distribution Width 16.7 % (13.2-15.2)
[2019-02-12 20:46] LABS: BUN/Creatinine Ratio 10; Blood Urea Nitrogen 6 mg/dL (7-17); Calcium 9.5 mg/dL (8.4-10.2); Hemolysis Index 7
[2019-02-12] MEDS ORDERED: ATARAX PO ONE (22:20)
[2019-02-12] MEDS ORDERED: ZOFRAN ODT PO ONE (22:21)
[2019-02-12 23:10] VITALS: BP 113/73
== END 2019-02-13 00:24 | disposition home or self-care (01) ==
LOC: ED 19:28
DX: D57.00 Hb-SS disease with crisis, unspecified (principal); Z88.6 Allergy status to analgesic agent; Z88.1 Allergy status to other antibiotic agents
CPT/HCPCS: 36415; 80048; 84703; 85025; 85045; 96372; 99283; J1170; Q0162

== ENCOUNTER 2019-07-20 21:27 | Emergency (ER) | payer MEDICAID, OTHER ==
[2019-07-20 21:52] VITALS: BP 137/80
--- NOTE | 2019-07-20 21:52 | Event Note ---
ED Screening Note Date of service: 07/20/19 Time: 21:51 ED Screening Note: 34 y o f presents with right sided ear pain and throat pain x 1 week no relief and getting worse denies f/c/n/v This initial assessment/diagnostic orders/clinical plan/treatment(s) is/are subject to change based on patients health status, clinical progression and re- assessment by fellow clinical providers in the ED. Further treatment and workup at subsequent clinical providers discretion. Patient/guardian urged not to elope from the ED as their condition may be serious if not clinically assessed and managed. Initial orders include: acc eval
--- NOTE | 2019-07-21 00:21 | Emergency Department Report ---
ED General Adult HPI - General Chief complaint: Earache Stated complaint: THROAT EAR RT HEAD/CHEST Time Seen by Provider: 07/20/19 21:50 Source: patient Mode of arrival: Ambulatory Limitations: No Limitations - History of Present Illness Initial comments: Patient is a 34-year-old female who presents the emergency room with complaints of a sore throat that began a week ago. pt states she has some discomfort with swallowing. She states she has right-sided ear pain. Denies any drainage from the ear, fever, cough, rhinorrhea, sinus pressure. Patient denies any sick contacts. She states she has a past medical history of sickle cell. She states she has an allergy to vancomycin and NSAIDs. - Related Data Previous Rx's Medication Instructions Recorded Last Taken Type Folic Acid [Folvite] 1 mg PO DAILY #90 tablet 11/21/14 07/03/16 Rx HYDROmorphone [Dilaudid] 4 mg PO Q6H PRN #10 tablet 04/19/16 07/03/16 Rx oxyCODONE /ACETAMINOPHEN [Percocet 1 - 2 tab PO Q6HR PRN #14 tablet 07/22/16 Unknown Rx 5/325] Ondansetron [Zofran Odt] 4 mg PO Q8HR PRN #14 tab.rapdis 06/26/17 Unknown Rx oxyCODONE /ACETAMINOPHEN [Percocet 1 tab PO Q6HR PRN #10 tablet 06/26/17 Unknown Rx 5/325] Cetirizine HCl [Zyrtec 10mg tab] 10 mg PO DAILY #10 tablet 07/21/19 Unknown Rx Nystas/Diphen/Xyl Visc/Mylanta 30 ml MM TID PRN #480 ml 07/21/19 Unknown Rx [Magic Mouthwash] Allergies Allergy/AdvReac Type Severity Reaction Status Date / Time NSAIDS (Non-Steroidal Allergy Hives Verified 02/12/19 22:23 Anti-Inflamma vancomycin Allergy Itching Verified 02/12/19 22:23 ED Review of Systems ROS: Stated complaint: THROAT EAR RT HEAD/CHEST Other details as noted in HPI Comment: All other systems reviewed and negative ED Past Medical Hx - Past Medical History Previous Medical History?: Yes Hx Hypertension: No Hx Congestive Heart Failure: No Hx Diabetes: No Hx Renal Disease: No Hx Sickle Cell Disease: Yes Hx Seizures: No Hx Asthma: No Hx COPD: No - Surgical History Past Surgical History?: Yes Additional Surgical History: 2 C-sections. abdominal hernia repair. PORT LEFT UPPER ARM. ectopic and left salpingectomy - Social History Smoking Status: Never Smoker Substance Use Type: None - Medications Home Medications: Home Medications Medication Instructions Recorded Confirmed Last Taken Type Folic Acid [Folvite] 1 mg PO DAILY #90 tablet 11/21/14 11/11/16 07/03/16 Rx HYDROmorphone [Dilaudid] 4 mg PO Q6H PRN #10 tablet 04/19/16 11/11/16 07/03/16 Rx oxyCODONE /ACETAMINOPHEN [Percocet 1 - 2 tab PO Q6HR PRN #14 tablet 07/22/16 11/11/16 Unknown Rx 5/325] Ondansetron [Zofran Odt] 4 mg PO Q8HR PRN #14 tab.rapdis 06/26/17 Unknown Rx oxyCODONE /ACETAMINOPHEN [Percocet 1 tab PO Q6HR PRN #10 tablet 06/26/17 Unknown Rx 5/325] Cetirizine HCl [Zyrtec 10mg tab] 10 mg PO DAILY #10 tablet 07/21/19 Unknown Rx Nystas/Diphen/Xyl Visc/Mylanta 30 ml MM TID PRN #480 ml 07/21/19 Unknown Rx [Magic Mouthwash] ED Physical Exam - General Limitations: No Limitations General appearance: alert, in no apparent distress - Head Head exam: Present: atraumatic, normocephalic - Eye Eye exam: Present: normal appearance, PERRL, EOMI - ENT ENT exam: Present: normal orophraynx, mucous membranes moist, TM's normal bilaterally, normal external ear exam, other (no tonsillar exudates no tonsillar hypertrophy) - Neck Neck exam: Present: full ROM. Absent: meningismus - Respiratory Respiratory exam: Present: normal lung sounds bilaterally. Absent: respiratory distress, wheezes, rales, rhonchi, stridor, chest wall tenderness, accessory muscle use, decreased breath sounds, prolonged expiratory - Cardiovascular Cardiovascular Exam: Present: regular rate, normal rhythm, normal heart sounds. Absent: systolic murmur, diastolic murmur, rubs, gallop - Neurological Exam Neurological exam: Present: alert, oriented X3 - Psychiatric Psychiatric exam: Present: normal affect, normal mood - Skin Skin exam: Present: warm, dry, intact ED Course Vital Signs 07/20/19 21:49 Temperature 98.3 F Pulse Rate 89 Respiratory 18 Rate Blood Pressure 137/80 O2 Sat by Pulse 96 Oximetry ED Medical Decision Making - Medical Decision Making Patient is a 34-year-old female who presents the emergency room with complaints of a sore throat that began a week ago. pt states she has some discomfort with swallowing. She states she has right-sided ear pain. Denies any drainage from the ear, fever, cough, rhinorrhea, sinus pressure. Patient denies any sick contacts. She states she has a past medical history of sickle cell. She states she has an allergy to vancomycin and NSAIDs. vitals are normal. pt is afebrile. on exam: Normal oropharynx, no tonsillar exudates no tonsillar hypertrophy, normal TMs and canals bilaterally, breath sounds are clear bilaterally without wheezes rales or rhonchi. pt given prescription for Magic mouthwash and Zyrtec. advised pt to please use medication as prescribed. May take Tylenol [id number]. May use warm salt water gargles and throat spray as needed for throat discomfort. Follow up with the primary care doctor in the next 2-3 days for reevaluation. return to the emergency room for any new or worsening symptoms. - Differential Diagnosis URI, strep, pharyngitis, tonsillitis, otitis media/externa, allergies,viral Critical care attestation.: If time is entered above; I have spent that time in minutes in the direct care of this critically ill patient, excluding procedure time. ED Disposition Clinical Impression: Pain in throat, Right ear pain Disposition: DC- TO HOME OR SELFCARE Is pt being admited?: No Does the pt Need Aspirin: No Condition: Stable Instructions: Earache (ED) Additional Instructions: Please use medication as prescribed. May take Tylenol [id number]. May use warm salt water gargles and throat spray as needed for throat discomfort. Follow up with the primary care doctor in the next 2-3 days for reevaluation. return to the emergency room for any new or worsening symptoms. Prescriptions: Nystas/Diphen/Xyl Visc/Mylanta [Magic Mouthwash] 30 ml MM TID PRN #480 ml PRN Reason: throat pain Cetirizine HCl [Zyrtec 10mg tab] 10 mg PO DAILY #10 tablet Referrals: PRIMARY CARE, [Primary Care Provider] - 2-3 Days Time of Disposition: 00:19 Print Language: SETSWANA
== END 2019-07-21 00:30 | disposition home or self-care (01) ==
LOC: ED 21:27
DX: H92.01 Otalgia, right ear (principal); J02.9 Acute pharyngitis, unspecified; Z79.899 Other long term (current) drug therapy; Z88.1 Allergy status to other antibiotic agents; Z88.7 Allergy status to serum and vaccine; Z98.890 Other specified postprocedural states
CPT/HCPCS: 99282

== ENCOUNTER 2021-03-12 22:44 | Observation (INO) | payer MEDICAID ==
[2021-03-13 01:27] LABS: Basophils % (Auto) 0.3 % (0.0-1.8); Eosinophils # (Auto) 0.3 K/mm3 (0.0-0.4); Eosinophils % (Auto) 2.4 % (0.0-4.3); Hematocrit 32.1 % (30.3-42.9); Lymphocytes # (Auto) 3.8 K/mm3 (1.2-5.4); Lymphocytes % (Auto) 35.1 % (13.4-35.0); Mean Corpuscular HGB Conc 34 % (30-34); Mean Corpuscular Volume 78 fl (79-97); Monocytes # (Auto) 1.3 K/mm3 (0.0-0.8); Monocytes % (Auto) 11.7 % (0.0-7.3); Platelet Count 323 K/mm3 (140-440); Red Blood Count 4.11 M/mm3 (3.65-5.03); Red Cell Distribution Width 17.6 % (13.2-15.2)
[2021-03-13 01:48] LABS: Alanine Aminotransferase 67 units/L (7-56); Albumin 4.3 g/dL (3.9-5); Blood Urea Nitrogen 9 mg/dL (7-17); Calcium 9.1 mg/dL (8.4-10.2); Hemolysis Index 4
[2021-03-13 01:49] LABS: BUN/Creatinine Ratio 18
--- NOTE | 2021-03-13 03:06 | XRay Report ---
CHEST 2 VIEWS 0208 INDICATION / CLINICAL INFORMATION: Back pain, difficulty breathing COMPARISON: None currently available FINDINGS: SUPPORT DEVICES: A left-sided PICC is seen with tip in the area of the distal superior vena cava HEART / MEDIASTINUM: No significant abnormality. LUNGS / PLEURA: No significant pulmonary or pleural abnormality. No pneumothorax. ADDITIONAL FINDINGS: No significant additional findings. IMPRESSION: No significant acute abnormality Signer Name: Adriano Hoskins MD Signed: 03/13/2021 3:02 AM Workstation Name: [id number]
--- NOTE | 2021-03-13 03:44 | Emergency Department Report ---
ED General Adult HPI - General Chief complaint: Sickle Cell Crisis Stated complaint: SICKLE CELL PAIN LOWER BACK PUI?: No Time Seen by Provider: 03/13/21 03:21 Source: patient, RN notes reviewed, old records reviewed Mode of arrival: Ambulatory Limitations: Physical Limitation - History of Present Illness Initial comments: The patient was evaluated in the emergency department for symptoms described in the history of present illness. He/she was evaluated in the context of the global COVID-19 pandemic, which necessitated consideration that the patient might be at risk for infection with the virus that causes COVID-19. Inst itutional protocols and algorithms that pertain to the evaluation of patients at risk for COVID-19 are in a state of rapid change based on information released by regulatory bodies including the CDC and federal and state organizations. These policies and algorithms were followed during the patient's care in the emergency department. Please note that these policies, procedures and recommendations changed on a rapid basis. During the history and physical examination, I am chaperoned by Valarie Garcia. The patient is a 36-year-old female. She has a history of sickle cell disease, questionable supraventricular tachycardia. Hematology: Dr. Greg García. The patient presents to the ER today with a primary complaint of feeling dizzy and off-balance for 2 days. This is associated with shortness of breath, and difficulty with taking a deep inspiration. The patient endorses no headache, neck pain or chest pain or loss of vision. She denies Covid symptomatology. She denies travel, surgery, oral contraceptive use, , DVT and pulmonary embolism risk factors. She has completed her Covid vaccination series. She is also complaining of paralumbar back pain, which feels similar to her prior episode of sickle cell crisis. She reports that she feels like multiple stressors are contributing to a possible sickle crisis, including excessive work hours, and being a single parent. She takes hydromorphone at home, which typically helps out her pain. -: Gradual, days(s) Location: back Radiation: non-radiation Quality: aching Consistency: constant Improves with: medication, rest Worsens with: movement - Related Data Previous Rx's Medication Instructions Recorded Last Taken Type Folic Acid [Folvite] 1 mg PO DAILY #90 tablet 11/21/14 07/03/16 Rx HYDROmorphone [Dilaudid] 4 mg PO Q6H PRN #10 tablet 04/19/16 07/03/16 Rx oxyCODONE /ACETAMINOPHEN [Percocet 1 - 2 tab PO Q6HR PRN #14 tablet 07/22/16 Unknown Rx 5/325 mg] Ondansetron [Zofran ODT TAB] 4 mg PO Q8HR PRN #14 tab.rapdis 06/26/17 Unknown Rx oxyCODONE /ACETAMINOPHEN [Percocet 1 tab PO Q6HR PRN #10 tablet 06/26/17 Unknown Rx 5/325 mg] Cetirizine HCl [Zyrtec 10mg tab] 10 mg PO DAILY #10 tablet 07/21/19 Unknown Rx Nystas/Diphen/Xyl Visc/Mylanta 30 ml MM TID PRN #480 ml 07/21/19 Unknown Rx [Magic Mouthwash] Allergies Allergy/AdvReac Type Severity Reaction Status Date / Time NSAIDS (Non-Steroidal Allergy Hives Verified 02/12/19 22:23 Anti-Inflamma vancomycin Allergy Itching Verified 02/12/19 22:23 ED Review of Systems ROS: Stated complaint: SICKLE CELL PAIN LOWER BACK Other details as noted in HPI Constitutional: malaise, weakness. denies: fever Eyes: denies: eye discharge ENT: denies: epistaxis Respiratory: shortness of breath. denies: cough Cardiovascular: denies: chest pain Gastrointestinal: denies: abdominal pain, nausea, vomiting, hematemesis, melena Genitourinary: denies: dysuria Musculoskeletal: back pain, arthralgia, myalgia Skin: denies: lesions Neurological: weakness, abnormal gait. denies: vertigo Hematological/Lymphatic: denies: easy bleeding ED Past Medical Hx - Past Medical History Previous Medical History?: No Hx Hypertension: No Hx Congestive Heart Failure: No Hx Diabetes: No Hx Renal Disease: No Hx Sickle Cell Disease: Yes Hx Seizures: No Hx Asthma: No Hx COPD: No - Surgical History Past Surgical History?: No Additional Surgical History: 2 C-sections. abdominal hernia repair. PORT LEFT UPPER ARM. ectopic and left salpingectomy - Social History Smoking Status: Never Smoker Substance Use Type: None - Medications Home Medications: Home Medications Medication Instructions Recorded Confirmed Last Taken Type Folic Acid [Folvite] 1 mg PO DAILY #90 tablet 11/21/14 11/11/16 07/03/16 Rx HYDROmorphone [Dilaudid] 4 mg PO Q6H PRN #10 tablet 04/19/16 11/11/16 07/03/16 Rx oxyCODONE /ACETAMINOPHEN [Percocet 1 - 2 tab PO Q6HR PRN #14 tablet 07/22/16 11/11/16 Unknown Rx 5/325 mg] Ondansetron [Zofran ODT TAB] 4 mg PO Q8HR PRN #14 tab.rapdis 06/26/17 Unknown Rx oxyCODONE /ACETAMINOPHEN [Percocet 1 tab PO Q6HR PRN #10 tablet 06/26/17 Unknown Rx 5/325 mg] Cetirizine HCl [Zyrtec 10mg tab] 10 mg PO DAILY #10 tablet 07/21/19 Unknown Rx Nystas/Diphen/Xyl Visc/Mylanta 30 ml MM TID PRN #480 ml 07/21/19 Unknown Rx [Magic Mouthwash] ED Physical Exam - General Limitations: No Limitations General appearance: alert, anxious, obese - Head Head exam: Present: atraumatic, normocephalic - Eye Eye exam: Present: normal appearance, PERRL, EOMI, other (Visual acuity intact to finger counting, color perception, reading at a close distance). Absent: nystagmus - ENT ENT exam: Present: normal exam, normal orophraynx, mucous membranes moist, normal external ear exam - Neck Neck exam: Present: normal inspection, full ROM. Absent: tenderness, meningismus - Respiratory Respiratory exam: Present: normal lung sounds bilaterally. Absent: respiratory distress, wheezes, rales, rhonchi, stridor, decreased breath sounds - Cardiovascular Cardiovascular Exam: Present: regular rate, normal rhythm, normal heart sounds. Absent: bradycardia, tachycardia, irregular rhythm, systolic murmur, diastolic murmur, rubs, gallop - GI/Abdominal GI/Abdominal exam: Present: soft. Absent: distended, tenderness, guarding, rebound, rigid, pulsatile mass - Extremities Exam Extremities exam: Present: normal inspection, full ROM, other (2+ pulses noted in the bilateral upper and lower extremities. There is no palpable cord. negative Homans sign. Muscular compartments are soft. The pelvis is stable.). Absent: pedal edema, calf tenderness - Back Exam Back exam: Present: normal inspection, full ROM, paraspinal tenderness. Absent: tenderness, CVA tenderness (R), CVA tenderness (L), muscle spasm, vertebral tenderness - Neurological Exam Neurological exam: Present: alert (There is no past-pointing. There is no pronator drift. There is normal [id number].), abnormal gait (Walks with a broad-based gait. Not able to tolerate lumbar examination. Unable to tolerate tandem gait.), other (No facial droop. Tongue midline. Extraocular movements intact bilaterally. Facial sensation intact to light touch in V1, V2, V3 distribution bilaterally. 5 and a 5 strength in 4 extremities. Sensation intact to light touch in 4 extremities.). Absent: motor sensory deficit - Psychiatric Psychiatric exam: Present: normal affect, normal mood - Skin Skin exam: Present: warm, dry, intact, normal color. Absent: rash ED Course Vital Signs 03/13/21 03/13/21 00:22 05:36 Temperature 98.9 F 98.1 F Pulse Rate 94 H 84 Respiratory 16 18 Rate Blood Pressure 131/75 Blood Pressure 133/74 [Left] O2 Sat by Pulse 99 100 Oximetry - Reevaluation(s) Reevaluation #1: 03/13/21 04:03 Differential diagnosis, including but not limited to: Orthostasis, vagal event, structural cardiac disease, pulmonary embolism, TIA, stroke, venous sinus thrombosis, sickle cell crisis Assessment and plan: 36-year-old female, with a history of sickle cell disease, presenting to the ER with multiple complaints. Complaint #1, feeling off balance. Symptoms present for about 48 hours. NIH score of 0. Not a TPA candidate given duration of symptoms, and NIH score of 0. Walks with a broad-based gait, not able to tolerate Romberg examination, or tandem gait. Examination not suggestive of large vessel occlusion, symptoms present for greater than 24 hours, no indication for emergent CT angiographic imaging. Obtain CT scan of the brain. Obtain neurology consultation. Anticipate admission for acquisition of MRI to exclude venous sinus thrombosis and subacute stroke. Complaint #2, nonspecific shortness of breath. Patient is not currently tachycardic, tachypneic or hypoxic, she denies DVT and pulmonary embolism risk factors with the exception of sickle cell disease. X-ray of the chest unremarkable. EKG unremarkable. Patient not hypoxic at this time, she is not tachypneic at this time, she denies loss of taste and smell. She is also completed her Covid vaccination series. Check D-dimer to restratify for pulmonary embolism. Complaints #3, lower back pain. She typically has lower back pain associate with her sickle crisis. I have evaluated this patient for sickle pain in the past in 2019. We will treat her with hydromorphone for her back pain. Reassess after initial data points. Reevaluation #2: 03/13/21 04:45 Patient seen by stroke neurology, . He is in agreement with plan for admiss [facility] for stroke work-up, MRI, MRA, and MRV. Given 48 hours of symptoms, NIH score of 0, this is unlikely to be a large vessel occlusion, and patient would also not benefit from thrombectomy at this time, given duration of symptoms. Hospital physician, Dr. Garnt to admit to [facility] 03/16/21 18:21 CT scan of the chest negative for pulmonary embolism ED Medical Decision Making - Lab Data Result diagrams: 03/13/21 00:37 03/13/21 00:37 Vital Signs 03/13/21 00:22 Temperature 98.9 F Pulse Rate 94 H Respiratory 16 Rate Blood Pressure 131/75 O2 Sat by Pulse 99 Oximetry Lab Results 03/13/21 03/13/21 03/13/21 Range/Units 00:37 00:37 00:37 WBC 10.9 (4.5-11.0) K/mm3 RBC 4.11 (3.65-5.03) M/mm3 Hgb 11.0 (10.1-14.3) gm/dl Hct 32.1 (30.3-42.9) % MCV 78 L (79-97) fl MCH 27 L (28-32) pg MCHC 34 (30-34) % RDW 17.6 H (13.2-15.2) % Plt Count 323 (140-440) K/mm3 Lymph % (Auto) 35.1 H (13.4-35.0) % Hopkins % (Auto) 11.7 H (0.0-7.3) % Eos % (Auto) 2.4 (0.0-4.3) % Baso % (Auto) 0.3 (0.0-1.8) % Lymph # (Auto) 3.8 (1.2-5.4) K/mm3 Hopkins # (Auto) 1.3 H (0.0-0.8) K/mm3 Eos # (Auto) 0.3 (0.0-0.4) K/mm3 Baso # (Auto) 0.0 (0.0-0.1) K/mm3 Seg Neutrophils % 50.5 (40.0-70.0) % Seg Neutrophils # 5.5 (1.8-7.7) K/mm3 Percent Retic 4.60 H (0.78-2.58) % Sodium 139 (137-145) mmol/L Potassium 3.8 (3.6-5.0) mmol/L Chloride 102.0 (98-107) mmol/L Carbon Dioxide 27 (22-30) mmol/L Anion Gap 14 mmol/L BUN 9 (7-17) mg/dL Creatinine 0.5 L (0.6-1.2) mg/dL Estimated GFR > 60 ml/min BUN/Creatinine Ratio 18 % Glucose 72 (65-100) mg/dL Calcium 9.1 (8.4-10.2) mg/dL Total Bilirubin 0.60 (0.1-1.2) mg/dL AST 39 (5-40) units/L ALT 67 H (7-56) units/L Alkaline Phosphatase 125 (35-129) units/L Total Protein 7.5 (6.3-8.2) g/dL Albumin 4.3 (3.9-5) g/dL Albumin/Globulin Ratio 1.3 % HCG, Qual Negative (Negative) - EKG Data -: EKG Interpreted by Sd EKG shows normal: sinus rhythm Rate: normal - EKG Data 03/13/21 04:02 EKG interpreted at 03: 58 Sinus rhythm, 83 bpm. Normal axis, QTC 444 ms. Normal motion artifact. EKG is not a STEMI. - Radiology Data Radiology results: pending, report reviewed, image reviewed [facility] [address] [place] [address] XRay Report Signed Patient: MURIEL KAUR MR #: [id number] : 1985 Acct:[id number] Age/Sex: 36 / F ADM Date: 03/12/21 Loc: ED Attending Dr: Ordering Physician: SUZY LEVINE Date of Service: 03/13/21 Procedure(s): XR chest routine 2V Accession Number(s): [id number] cc: SUZY LEVINE Fluoro Time In Minutes: CHEST 2 VIEWS 0208 INDICATION / CLINICAL INFORMATION: Back pain, difficulty breathing COMPARISON: None currently available FINDINGS: SUPPORT DEVICES: A left-sided PICC is seen with tip in the area of the distal superior vena cava HEART / MEDIASTINUM: No significant abnormality. LUNGS / PLEURA: No significant pulmonary or pleural abnormality. No pneumothorax. ADDITIONAL FINDINGS: No significant additional findings. IMPRESSION: No significant acute abnormality Signer Name: Adriano Hoskins MD Signed: 03/13/2021 3:02 AM Workstation Name: [id number] Transcribed By: GJ Dictated By: Adriano Hoskins MD Electronically Authenticated By: Adriano Hoskins MD Signed Date/Time: 03/13/21301 DD/ 9 Critical care attestation.: If time is entered above; I have spent that time in minutes in the direct care of this critically ill patient, excluding procedure time. ED Disposition Clinical Impression: Sickle cell pain crisis, Shortness of breath, Abnormal gait, Dizziness, Vertigo Disposition: DC-09 OP ADMIT IP TO THIS HOSP Is pt being admited?: Yes Does the pt Need Aspirin: No Condition: Good - Assessment Assessment Interval: Baseline - Level of Consciousness 1a. Level of Consciousness: alert/keenly responsive - LOC Questions 1b. LOC Questions: answers both correctly - LOC Command 1c. LOC Commands: performs tasks correctly - Best Gaze 2. Best Gaze: normal - Visual 3. Visual: no visual loss - Facial Palsy 4. Facial Palsy: normal symmetrical movement - Motor Arm 5a. Motor Arm Left: no drift 5b. Motor Arm Right: no drift - Motor Leg 6a. Motor Leg Left: no drift 6b. Motor Leg Right: no drift - Limb Ataxia 7. Limb Ataxia: absent - Sensory 8. Sensory: normal - Best Language 9. Best Language: no aphasia - Dysarthria 10. Dysarthria: normal - Extinction and Inattention 11. Extinction/Inattention: no abnormality - Scoring Total Score: 0 Stroke Severity: No Stroke Symptoms
[2021-03-13] MEDS ORDERED: HYDROmorphone 1 MG/1 ML INJ IV ONE (03:54)
[2021-03-13] MEDS ORDERED: LACTATED RINGERS 1,000 ML IV ONE (03:54)
--- NOTE | 2021-03-13 04:48 | Emergency Department Report ---
ED General Adult HPI - General Chief complaint: Sickle Cell Crisis Stated complaint: SICKLE CELL PAIN LOWER BACK PUI?: No Time Seen by Provider: 03/13/21 03:21 Source: patient, RN notes reviewed, old records reviewed Mode of arrival: Ambulatory Limitations: No Limitations - History of Present Illness Initial comments: [facility] Consult Note # Demographics Consult Type: General Neurology Patient Location: Emergency Room First Name: Ginny Last Name: Anuel Date of : 1985 Age: 36 Gender: Female Time of Initial Page ( Time): 03/13/2021, 04:29 Time of Return Call ( Time): 03/13/2021, 04:30 # HPI History: 36 yo woman with sickle cell, who notes 2 days of dizziness that has developed into a sickle crisis with severe pain. Patient notes she had an episode of dizziness years ago, after which she was told her liver values were off. She in folate, MV, tylenol. # Scores Time of exam and NIHSS (): 03/13/2021, 04:39 Level of Consciousness 1a: [0] = Alert; keenly responsive LOC Questions 1b: [0] = Answers both questions correctly LOC Commands 1c: [0] = Performs both tasks correctly Best Gaze 2: [0] = Normal Visual 3: [0] = No visual loss Facial Palsy 4: [0] = Normal symmetrical movements Motor Arm Left 5a: [0] = No drift Motor Arm Right 5b: [0] = No drift Motor Leg Left 6a: [0] = No drift Motor Leg Right 6b: [0] = No drift Limb Ataxia 7: [0] = Absent Sensory 8: [0] = Normal Best Language 9: [0] = No aphasia Dysarthria 10: [0] = Normal Extinction and Inattention 11: [0] = No abnormality NIHSS Total: 0 # Data Head CT: no bleed # Assessment Impression: vertigo x 2 days. Sickle crisis Out of tpa window, stroke is possible given her medical history. NIHSS 0 # Plan Thrombolytic/Intervention: NOT IV Thrombolytic or IA Intervention Thrombolytic Exclusion: > 4.5 hours Target Blood Pressure: SBP < 220 Labs: CBC, comprehensive metabolic panel, lipid panel, TSH, ua Medication: aspirin 325 mg daily Other: consult on-site neurology service for full work-up and evaluation recommendations, If patient has any neurological deterioration please call me back immediately, I have discussed my recommendations with the referring provider Additional Recommendations: Treat sickle crisis aggressively per hospital team. MRI brain noncontrast MRA head and neck. Can also include MR venogram of head Disposition: admit # Logistics Telemedicine: Interactive 2 way audio and visual telecommunication technology was utilized during this visit Location: back Quality: aching Improves with: medication, rest Worsens with: movement - Related Data Previous Rx's Medication Instructions Recorded Last Taken Type Folic Acid [Folvite] 1 mg PO DAILY #90 tablet 11/21/14 07/03/16 Rx HYDROmorphone [Dilaudid] 4 mg PO Q6H PRN #10 tablet 04/19/16 07/03/16 Rx oxyCODONE /ACETAMINOPHEN [Percocet 1 - 2 tab PO Q6HR PRN #14 tablet 07/22/16 Unknown Rx 5/325] Ondansetron [Zofran Odt] 4 mg PO Q8HR PRN #14 tab.rapdis 06/26/17 Unknown Rx oxyCODONE /ACETAMINOPHEN [Percocet 1 tab PO Q6HR PRN #10 tablet 06/26/17 Unknown Rx 5/325] Cetirizine HCl [Zyrtec 10mg tab] 10 mg PO DAILY #10 tablet 07/21/19 Unknown Rx Nystas/Diphen/Xyl Visc/Mylanta 30 ml MM TID PRN #480 ml 07/21/19 Unknown Rx [Magic Mouthwash] Allergies Allergy/AdvReac Type Severity Reaction Status Date / Time NSAIDS (Non-Steroidal Allergy Hives Verified 02/12/19 22:23 Anti-Inflamma vancomycin Allergy Itching Verified 02/12/19 22:23 ED Review of Systems ROS: Stated complaint: SICKLE CELL PAIN LOWER BACK Other details as noted in HPI Constitutional: malaise, weakness. denies: fever Eyes: denies: eye discharge ENT: denies: epistaxis Respiratory: shortness of breath. denies: cough Cardiovascular: denies: chest pain Gastrointestinal: denies: abdominal pain, nausea, vomiting, hematemesis, melena Genitourinary: denies: dysuria Musculoskeletal: back pain, arthralgia, myalgia Skin: denies: lesions Neurological: weakness, abnormal gait. denies: vertigo Hematological/Lymphatic: denies: easy bleeding ED Past Medical Hx - Past Medical History Previous Medical History?: No Hx Hypertension: No Hx Congestive Heart Failure: No Hx Diabetes: No Hx Renal Disease: No Hx Sickle Cell Disease: Yes Hx Seizures: No Hx Asthma: No Hx COPD: No - Surgical History Past Surgical History?: No Additional Surgical History: 2 C-sections. abdominal hernia repair. PORT LEFT UPPER ARM. ectopic and left salpingectomy - Social History Smoking Status: Never Smoker Substance Use Type: None - Medications Home Medications: Home Medications Medication Instructions Recorded Confirmed Last Taken Type Folic Acid [Folvite] 1 mg PO DAILY #90 tablet 11/21/14 11/11/16 07/03/16 Rx HYDROmorphone [Dilaudid] 4 mg PO Q6H PRN #10 tablet 04/19/16 11/11/16 07/03/16 Rx oxyCODONE /ACETAMINOPHEN [Percocet 1 - 2 tab PO Q6HR PRN #14 tablet 07/22/16 11/11/16 Unknown Rx 5/325] Ondansetron [Zofran Odt] 4 mg PO Q8HR PRN #14 tab.rapdis 06/26/17 Unknown Rx oxyCODONE /ACETAMINOPHEN [Percocet 1 tab PO Q6HR PRN #10 tablet 06/26/17 Unknown Rx 5/325] Cetirizine HCl [Zyrtec 10mg tab] 10 mg PO DAILY #10 tablet 07/21/19 Unknown Rx Nystas/Diphen/Xyl Visc/Mylanta 30 ml MM TID PRN #480 ml 07/21/19 Unknown Rx [Magic Mouthwash] ED Physical Exam - General Limitations: No Limitations General appearance: alert, anxious, obese ED Course Vital Signs 03/13/21 00:22 Temperature 98.9 F Pulse Rate 94 H Respiratory 16 Rate Blood Pressure 131/75 O2 Sat by Pulse 99 Oximetry ED Medical Decision Making - Lab Data Result diagrams: 03/13/21 00:37 03/13/21 00:37 Critical care attestation.: If time is entered above; I have spent that time in minutes in the direct care of this critically ill patient, excluding procedure time. ED Disposition Clinical Impression: Vertigo Disposition: - OP ADMIT IP TO THIS HOSP Is pt being admited?: Yes Does the pt Need Aspirin: No Condition: Stable Referrals: PRIMARY CARE,MD [Primary Care Provider] - 3-5 Days
--- NOTE | 2021-03-13 04:48 | Cat Scan Report ---
CT HEAD WITHOUT CONTRAST INDICATION: dizzy olff balance TECHNIQUE: All CT scans at this location are performed using CT dose reduction for ALARA by means of automated exposure control. COMPARISON: None available. FINDINGS: BRAIN: No hemorrhage or mass effect are seen. No evidence of acute infarction is noted. ORBITS: Normal as visualized. SOFT TISSUES OF HEAD: Normal. CALVARIUM: Normal. VISUALIZED PARANASAL SINUSES AND MASTOID AIR CELLS: Clear. ADDITIONAL FINDINGS: None. IMPRESSION: No acute intracranial abnormality. Signer Name: Adriano Hoskins MD Signed: 03/13/2021 4:43 AM Workstation Name: [id number]
[2021-03-13 04:49] LABS: INR 1.06 (0.87-1.13)
[2021-03-13] MEDS ORDERED: CLOPIDOGREL 75 MG TAB PO ONE (04:53)
[2021-03-13] MEDS ORDERED: ALBUTEROL 2.5 MG/3 ML NEBU IH PRN (05:39)
[2021-03-13] MEDS ORDERED: ACETAMINOPHEN 325 MG TAB PO PRN (05:39)
[2021-03-13] MEDS ORDERED: ONDANSETRON 4 MG/2 ML INJ IV PRN (05:39)
[2021-03-13] MEDS ORDERED: hydrALAZINE 20 MG/1 ML INJ IV PRN (05:43)
[2021-03-13] MEDS ORDERED: MAGIC MOUTHWASH 30ML MM PRN (05:43)
--- NOTE | 2021-03-13 05:48 | History and Physical Report ---
History of Present Illness Date of examination: 03/13/21 Date of admission: 03/13/21 04:47 Chief complaint: Dizziness History of present illness: 36-year-old female. She has a history of sickle cell diseas was brought to the ER today with a primary complaint of feeling dizzy and off-balance and shortness of breath, and difficulty with taking a deep inspiration 2 days. The patient endorses no headache, neck pain or chest pain or loss of vision. She denies Covid symptomatology. She denies travel, surgery, oral contraceptive use, , DVT and pulmonary embolism risk factors. She has completed her Covid vaccination series. She is also complaining of paralumbar back pain, which feels similar to her prior episode of sickle cell crisis. She reports t hat she feels like multiple stressors are contributing to a possible sickle crisis, including excessive work hours, and being a single parent. She takes hydromorphone at home, which typically helps out her pain. In the emergency room initial CT scan showed no acute intracranial abnormality. Patient is seen and evaluated by telemetry neurology. Also we are doing a CT scan of the chest Past History Past Medical History: other (Sickle cell disease and SVT) Medications and Allergies Allergies Allergy/AdvReac Type Severity Reaction Status Date / Time NSAIDS (Non-Steroidal Allergy Hives Verified 02/12/19 22:23 Anti-Inflamma vancomycin Allergy Itching Verified 02/12/19 22:23 Home Medications Medication Instructions Recorded Confirmed Last Taken Type Folic Acid [Folvite] 1 mg PO DAILY #90 tablet 11/21/14 11/11/16 07/03/16 Rx HYDROmorphone [Dilaudid] 4 mg PO Q6H PRN #10 tablet 04/19/16 11/11/16 07/03/16 Rx oxyCODONE /ACETAMINOPHEN [Percocet 1 - 2 tab PO Q6HR PRN #14 tablet 07/22/16 11/11/16 Unknown Rx 5/325] Ondansetron [Zofran Odt] 4 mg PO Q8HR PRN #14 tab.rapdis 06/26/17 Unknown Rx oxyCODONE /ACETAMINOPHEN [Percocet 1 tab PO Q6HR PRN #10 tablet 06/26/17 Unknown Rx 5/325] Cetirizine HCl [Zyrtec 10mg tab] 10 mg PO DAILY #10 tablet 07/21/19 Unknown Rx Nystas/Diphen/Xyl Visc/Mylanta 30 ml MM TID PRN #480 ml 07/21/19 Unknown Rx [Magic Mouthwash] Active Meds: Active Medications Acetaminophen (Acetaminophen 325 Mg Tab) 650 mg PO Q4H PRN PRN Reason: Pain MILD(1-3)/Fever >100.5/MERRILL Albuterol (Albuterol 2.5 Mg/3 Ml Nebu) 2.5 mg IH Q3HRT PRN PRN Reason: Shortness Of Breath Albuterol/Ipratropium (Ipratropium/Albuterol Sulfate 3 Ml Ampul.Neb) 1 ampul IH Q6HRT ODELL Ondansetron HCl (Ondansetron 4 Mg/2 Ml Inj) 4 mg IV Q8H PRN PRN Reason: Nausea And Vomiting Sodium Chloride (Sodium Chloride 0.9% 10 Ml Flush Syringe) 10 ml IV BID ODELL Sodium Chloride (Sodium Chloride 0.9% 10 Ml Flush Syringe) 10 ml IV PRN PRN PRN Reason: LINE FLUSH Sodium Chloride (Sodium Chloride 0.9% 10 Ml Flush Syringe) 10 ml INJ PRN PRN PRN Reason: LINE FLUSH Review of Systems Constitutional: other (Dizziness) Neurological: balance difficulties, other (Dizziness) Exam - Constitutional Vitals: Temp Pulse Resp BP Pulse Ox 98.1 F 84 18 133/74 100 03/13/21 05:36 03/13/21 05:36 03/13/21 05:36 03/13/21 05:36 03/13/21 05:36 General appearance: Present: no acute distress, well-nourished - EENT Eyes: Present: PERRL ENT: hearing intact, clear oral mucosa - Neck Neck: Present: supple, normal ROM - Respiratory Respiratory effort: normal Respiratory: bilateral: CTA - Cardiovascular Heart Sounds: Present: S1 & S2. Absent: rub, click - Extremities Extremities: pulses symmetrical, No edema Peripheral Pulses: within normal limits - Abdominal General gastrointestinal: Present: soft, non-tender, non-distended, normal bowel sounds Female genitourinary: Present: normal - Integumentary Integumentary: Present: clear, warm, dry - Musculoskeletal Musculoskeletal: gait normal, strength equal bilaterally - Psychiatric Psychiatric: appropriate mood/affect, intact judgment & insight - Neurologic Neurologic: CNII-XII intact, moves all extremities, other ( alert (There is no past-pointing. There is no pronator drift. There is normal [id number].), abnormal gait (Walks with a broad-based gait. Not able to tolerate lumbar examination. Unable to tolerate tandem gait.), other (No facial droop. Tongue midline. Extraocular movements intact bilateral) HEART Score - HEART Score Troponin: Troponin T < 0.010 ng/mL (0.00-0.029) 03/13/21 04:07 Results - Labs CBC & Chem 7: 03/13/21 00:37 03/13/21 00:37 Labs: Laboratory Last Values WBC 10.9 K/mm3 (4.5-11.0) 03/13/21 00:37 RBC 4.11 M/mm3 (3.65-5.03) 03/13/21 00:37 Hgb 11.0 gm/dl (10.1-14.3) 03/13/21 00:37 Hct 32.1 % (30.3-42.9) 03/13/21 00:37 MCV 78 fl (79-97) L 03/13/21 00:37 MCH 27 pg (28-32) L 03/13/21 00:37 MCHC 34 % (30-34) 03/13/21 00:37 RDW 17.6 % (13.2-15.2) H 03/13/21 00:37 Plt Count 323 K/mm3 (140-440) 03/13/21 00:37 Lymph % (Auto) 35.1 % (13.4-35.0) H 03/13/21 00:37 Weber % (Auto) 11.7 % (0.0-7.3) H 03/13/21 00:37 Eos % (Auto) 2.4 % (0.0-4.3) 03/13/21 00:37 Baso % (Auto) 0.3 % (0.0-1.8) 03/13/21 00:37 Lymph # (Auto) 3.8 K/mm3 (1.2-5.4) 03/13/21 00:37 Weber # (Auto) 1.3 K/mm3 (0.0-0.8) H 03/13/21 00:37 Eos # (Auto) 0.3 K/mm3 (0.0-0.4) 03/13/21 00:37 Baso # (Auto) 0.0 K/mm3 (0.0-0.1) 03/13/21 00:37 Seg Neutrophils % 50.5 % (40.0-70.0) 03/13/21 00:37 Seg Neutrophils # 5.5 K/mm3 (1.8-7.7) 03/13/21 00:37 Percent Retic 4.60 % (0.78-2.58) H 03/13/21 00:37 PT 13.6 Sec. (12.2-14.9) 03/13/21 04:07 INR 1.06 (0.87-1.13) 03/13/21 04:07 D-Dimer 952.84 ng/mlDDU (0-234) H 03/13/21 04:07 Sodium 139 mmol/L (137-145) 03/13/21 00:37 Potassium 3.8 mmol/L (3.6-5.0) 03/13/21 00:37 Chloride 102.0 mmol/L (98-107) 03/13/21 00:37 Carbon Dioxide 27 mmol/L (22-30) 03/13/21 00:37 Anion Gap 14 mmol/L 03/13/21 00:37 BUN 9 mg/dL (7-17) 03/13/21 00:37 Creatinine 0.5 mg/dL (0.6-1.2) L 03/13/21 00:37 Estimated GFR > 60 ml/min 03/13/21 00:37 BUN/Creatinine Ratio 18 % 03/13/21 00:37 Glucose 72 mg/dL (65-100) 03/13/21 00:37 Calcium 9.1 mg/dL (8.4-10.2) 03/13/21 00:37 Total Bilirubin 0.60 mg/dL (0.1-1.2) 03/13/21 00:37 AST 39 units/L (5-40) 03/13/21 00:37 ALT 67 units/L (7-56) H 03/13/21 00:37 Alkaline Phosphatase 125 units/L (35-129) 03/13/21 00:37 Total Creatine Kinase 36 units/L (30-135) 03/13/21 04:07 Troponin T < 0.010 ng/mL (0.00-0.029) 03/13/21 04:07 Total Protein 7.5 g/dL (6.3-8.2) 03/13/21 00:37 Albumin 4.3 g/dL (3.9-5) 03/13/21 00:37 Albumin/Globulin Ratio 1.3 % 03/13/21 00:37 HCG, Qual Negative (Negative) 03/13/21 00:37 - Imaging and Cardiology Chest x-ray: report reviewed CT Scan - head: report reviewed Assessment and Plan VTE prophylaxis?: Chemical Plan of care discussed with patient/family: Yes - Patient Problems (1) Dizziness Current Visit: Yes Status: Acute Plan to address problem: Admit the patient to the medical telemetry. Plavix 75 mg p.o. daily. Lipitor 40 mg p.o. daily. Meclizine 25 mg p.o. every 8 hours as needed. We will do the MRI of the brain and MRA of the brain and neck and echocardiogram. Will consult neurology to see the patient. We also consult PT OT any speech evaluation (2) Vertigo Current Visit: Yes Status: Acute Plan to address problem: Plavix 75 mg p.o. daily. Lipitor 40 mg p.o. daily. Meclizine 25 mg p.o. every 8 hours as needed. We will do the MRI of the brain and MRA of the brain and neck and echocardiogram. Will consult neurology to see the patient. We also consult PT OT any speech evaluation (3) Shortness of breath Current Visit: Yes Status: Acute Plan to address problem: Oxygen via nasal cannula 3 L/min. DuoNeb by nebulizer every 4 hours. We will monitor the patient closely. We also follow the CT scan of the chest (4) Sickle cell pain crisis Onset Date: 11/18/14 Current Visit: Yes Status: Acute Plan to address problem: Hydromorphone 4 mg p.o. every 6 hours as needed. Tylenol 650 mg p.o. every 4 hours as needed. IV fluid D5 half-normal saline at the rate of 100 cc/h. We will monitor the patient closely (5) DVT prophylaxis Current Visit: Yes Status: Acute Plan to address problem: Heparin 5000 units subcu every 8 hours for DVT prophylaxis. Pepcid 20 mg p.o. twice daily for GI prophylaxis. Patient is a full code
[2021-03-13] MEDS ORDERED: D5W/0.45% NACL 1,000 ML IV SCH (06:00)
[2021-03-13] MEDS ORDERED: MECLIZINE 25 MG TAB PO PRN (06:11)
[2021-03-13] MEDS: HEPARIN 5,000 UNIT/1 ML VIAL SUB-Q SCH ×2 (06:46→13:14)
--- NOTE | 2021-03-13 08:35 | Consultation ---
History of Present Illness Consult date: 03/13/21 Reason for Consult: Dizziness ,Hx of sickle cell disease History of present illness: Dizziness History of present illness: 36-year-old female. She has a history of sickle cell diseas was brought to the ER today with a primary complaint of feeling dizzy and off-balance and shortness of breath, and difficulty with taking a deep inspiration 2 days. The patient endorses no headache, neck pain or chest pain or loss of vision. She denies Covid symptomatology. She denies travel, surgery, oral contraceptive use, , DVT and pulmonary embolism risk factors. She has completed her Covid vaccination series. She is also complaining of paralumbar back pain, which feels similar to her prior episode of sickle cell crisis. She reports that she feels like multiple stressors are contributing to a possible sickle crisis, including excessive work hours, and being a single parent. She takes hydromorphone at home, which typically helps out her pain. In the emergency room initial CT scan showed no acute intracranial abnormality. Patient is seen and evaluated by telemetry neurology. Also we are doing a CT sc an of the chest According to her she fels room spining with no weakness or diplopia no nausea no weakness -- had similar event few months ago last 3 days then improved MRI brain is unremarkable MRA is suggested of obscure segment in L.ICA proximal Echo is 60-65% EF Past History Past Medical History: other (Sickle cell disease and SVT) Review of Systems Constitutional: other (Dizziness) Neurological: balance difficulties, other (Dizziness) Past History Past Medical History: other (Sickle cell disease and SVT) Medications and Allergies Allergies Allergy/AdvReac Type Severity Reaction Status Date / Time NSAIDS (Non-Steroidal Allergy Hives Verified 02/12/19 22:23 Anti-Inflamma vancomycin Allergy Itching Verified 02/12/19 22:23 Home Medications Medication Instructions Recorded Confirmed Last Taken Type Folic Acid [Folvite] 1 mg PO DAILY #90 tablet 11/21/14 11/11/16 07/03/16 Rx HYDROmorphone [Dilaudid] 4 mg PO Q6H PRN #10 tablet 04/19/16 11/11/16 07/03/16 Rx oxyCODONE /ACETAMINOPHEN [Percocet 1 - 2 tab PO Q6HR PRN #14 tablet 07/22/16 11/11/16 Unknown Rx 5/325] Ondansetron [Zofran Odt] 4 mg PO Q8HR PRN #14 tab.rapdis 06/26/17 Unknown Rx oxyCODONE /ACETAMINOPHEN [Percocet 1 tab PO Q6HR PRN #10 tablet 06/26/17 Unknown Rx 5/325] Cetirizine HCl [Zyrtec 10mg tab] 10 mg PO DAILY #10 tablet 07/21/19 Unknown Rx Nystas/Diphen/Xyl Visc/Mylanta 30 ml MM TID PRN #480 ml 07/21/19 Unknown Rx [Magic Mouthwash] Active Meds: Active Medications Acetaminophen (Acetaminophen 325 Mg Tab) 650 mg PO Q4H PRN PRN Reason: Pain MILD(1-3)/Fever >100.5/MERRILL Albuterol (Albuterol 2.5 Mg/3 Ml Nebu) 2.5 mg IH Q3HRT PRN PRN Reason: Shortness Of Breath Albuterol/Ipratropium (Ipratropium/Albuterol Sulfate 3 Ml Ampul.Neb) 1 ampul IH Q6HRT ODELL Atorvastatin Calcium (Atorvastatin 40 Mg Tab) 40 mg PO QHS ODELL Clopidogrel Bisulfate (Clopidogrel 75 Mg Tab) 75 mg PO QDAY ODELL Famotidine (Famotidine 20 Mg Tab) 20 mg PO BID ODELL Folic Acid (Folic Acid 1 Mg Tab) 1 mg PO DAILY [facility] Heparin Sodium (Porcine) (Heparin 5,000 Unit/1 Ml Vial) 5,000 unit SUB-Q Q8HR [facility] Last Admin: 03/13/21 06:46 Dose: 5,000 unit Documented by: Hydralazine HCl (Hydralazine 20 Mg/1 Ml Inj) 10 mg IV Q6H PRN PRN Reason: htn Hydromorphone HCl (Hydromorphone 2 Mg Tab) 4 mg PO Q6H PRN PRN Reason: Pain , Severe (7-10) Dextrose/Sodium Chloride (D5/0.45ns) 1,000 mls @ 100 mls/hr IV DIRECT ODELL Lidocaine HCl (Magic Mouthwash 30ml) 30 ml MM TID PRN PRN Reason: throat pain Meclizine HCl (Meclizine 25 Mg Tab) 25 mg PO Q8H PRN PRN Reason: Vertigo Ondansetron HCl (Ondansetron 4 Mg/2 Ml Inj) 4 mg IV Q8H PRN PRN Reason: Nausea And Vomiting Sodium Chloride (Sodium Chloride 0.9% 10 Ml Flush Syringe) 10 ml IV BID ODELL Sodium Chloride (Sodium Chloride 0.9% 10 Ml Flush Syringe) 10 ml IV PRN PRN PRN Reason: LINE FLUSH Physical Examination - Vital Signs Vital Signs: Vital Signs Temp Pulse Resp BP Pulse Ox 98.9 F 94 H 16 131/75 99 03/13/21 00:22 03/13/21 00:22 03/13/21 00:22 03/13/21 00:22 03/13/21 00:22 - Constitutional General appearance: comfortable - EENT EENT: Present: PERRL, mucous membranes moist - Respiratory Respiratory: Present: chest non-tender, lungs clear - Cardiovascular Cardiovascular: Present: regular rate, normal S1, normal S2 Extremities: Present: no peripheral edema bilatateraly - Gastrointestinal Gastrointestinal: Present: normoactive bowel sounds - Integumentary Integumentary: Present: normal - Neurologic Cranial nerve examination: PERRL, EOMI, intact Speech examination: intact Sensorimotor examination: intact - Level of Consciousness 1a. Level of Consciousness: alert/keenly responsive - LOC Questions 1b. LOC Questions: answers both correctly - LOC Command 1c. LOC Commands: performs tasks correctly - Best Gaze 2. Best Gaze: normal - Visual 3. Visual: no visual loss - Facial Palsy 4. Facial Palsy: normal symmetrical movement - Motor Arm 5a. Motor Arm Left: no drift 5b. Motor Arm Right: no drift - Motor Leg 6a. Motor Leg Left: no drift 6b. Motor Leg Right: no drift - Limb Ataxia 7. Limb Ataxia: absent - Sensory 8. Sensory: normal - Best Language 9. Best Language: no aphasia - Dysarthria 10. Dysarthria: normal - Extinction and Inattention 11. Extinction/Inattention: no abnormality - Scoring Total Score: 0 Stroke Severity: No Stroke Symptoms Results - Laboratory Findings CBC and BMP: 03/13/21 00:37 03/13/21 00:37 Abnormal Lab Findings: Abnormal Labs 03/13/21 03/13/21 03/13/21 00:37 00:37 04:07 MCV 78 L MCH 27 L RDW 17.6 H Lymph % (Auto) 35.1 H Gregory % (Auto) 11.7 H Gregory # (Auto) 1.3 H Percent Retic 4.60 H D-Dimer 952.84 H Creatinine 0.5 L ALT 67 H Assessment and Plan Assessment and Plan - Patient Problems (1) Dizziness discriped as spinning sensation with no other associated symptoms , had hx of similar in the past -MRI brain is unremarkable -MRA obscured LICA proximal segment !!! Admit the patient to the medical telemetry. Plavix 75 mg p.o. daily. Lipitor 40 mg p.o. daily. Meclizine 25 mg p.o. every 8 hours as needed. Will schadual for CTA -check for orthostatic changes (2) Vertigo Plavix 75 mg p.o. daily. Lipitor 40 mg p.o. daily. Meclizine 25 mg p.o. every 8 hours as needed. We will do the MRI of the brain and MRA of the brain and neck and echocardiogram. Will consult neurology to see the patient. We also consult PT OT any speech evaluation (3) Shortness of breath Oxygen via nasal cannula 3 L/min. DuoNeb by nebulizer every 4 hours. We will monitor the patient closely. We also follow the CT scan of the chest is unremarkable (4) Sickle cell pain crisis Hydromorphone 4 mg p.o. every 6 hours as needed. Tylenol 650 mg p.o. every 4 hours as needed. IV fluid D5 half-normal saline at the rate of 100 cc/h. We will monitor the patient closely (5) DVT prophylaxis Heparin 5000 units subcu every 8 hours for DVT prophylaxis. Pepcid 20 mg p.o. twice daily for GI prophylaxis. Patient is a full code will follow
--- NOTE | 2021-03-13 09:11 | Cat Scan Report ---
CTA CHEST WITH IV CONTRAST INDICATION: dyspnea, hbss, + d dimer CONTRAST: 100 cc Omnipaque 350 IV COMPARISON: Chest x-ray tonight Three-plane MIP reconstructions were produced. All CT scans at this location are performed using CT d ose reduction for ALARA by means of automated exposure control. NOTE: Resolution is decreased and artifact is introduced by the patient's size. FINDINGS: Several nodes are seen in both axillae but one on the left is mildly prominent with only a minimal fatty hilum and a short axis diameter of 12 mm with a length of 2.1 cm. No mediastinal or hilar masses are seen. A few small nodes in the mediastinum are not pathologically enlarged. Views of the upper abdomen show fatty infiltration and enlargement of the liver. No pleural effusions are seen. No pneumothorax or pneumomediastinum are noted. Mild bibasilar atelectatic kinney es are seen without definite pneumonic infiltrate. Aorta shows no aneurysmal dilatation or evidence of dissection. Good opacification of the pulmonary arterial system was achieved. I do not see convincing evidence of pulmonary thromboembolism. Mild artifact is seen in the lower lobes. IMPRESSION: 1. No significant intrathoracic abnormalities are seen. No convincing evidence of pulmonary thromboem bolism 2. Single node is prominent in the left axilla. If the patient has had a Covid immunization in the le ft upper extremity recently this may not be significant. Otherwise I would suggest either follow-up w ith CT or left axillary ultrasound. Signer Name: Adriano Hoskins MD Signed: 03/13/2021 6:17 AM Workstation Name: [id number]
[2021-03-13] MEDS: HYDROmorphone 2 MG TAB PO PRN ×2 (09:33→17:15)
[2021-03-13] MEDS ORDERED: ASPIRIN 325 MG TAB PO SCH (10:00)
[2021-03-13] MEDS ORDERED: FAMOTIDINE 20 MG TAB PO SCH (10:00)
[2021-03-13] MEDS ORDERED: FOLIC ACID 1 MG TAB PO SCH (10:00)
--- NOTE | 2021-03-13 10:43 | Electrocardiograph Report ---
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
--- NOTE | 2021-03-13 10:54 | Magnetic Resonance Report ---
MRA HEAD WITHOUT CONTRAST HISTORY: COMPARISON: none TECHNIQUE: Routine MRA of the head performed. 3-D/MIP reformats postprocessed. CONTRAST: none FINDINGS: MRA HEAD: OVERVIEW: There is no evidence of intracranial stenosis or large vessel occlusion. There is no eviden ce of aneurysm or other vascular malformation. Intracranial vertebral arteries: Normal and symmetrical vertebral arteries both contribute to the bas ilar artery origin. Basilar artery: Basilar artery has an unremarkable appearance. Posterior cerebral arteries: Normal and symmetrical appearing posterior cerebral arteries are identif ied. Large posterior communicating arteries are identified bilaterally. Intracranial internal carotid arteries: No significant abnormality. Incidental note is made of modera te tortuosity of the distal cervical segments of the internal carotid arteries bilaterally. There is a short segment flow gap just below the skull base on the left. This may be artifactual or could refl ect presence of a high-grade stenosis. Correlation with CTA head and neck or MRA neck with intravenou s contrast would be useful for further evaluation of this finding. Marvin, cavernous, ophthalmic, cli noid and supraclinoid segments of the internal carotid arteries all have a normal appearance. Anterior cerebral arteries: Bilaterally symmetrical A1 segments of the anterior cerebral arteries are demonstrated. No abnormalities are seen along the course of the A2 segments or visualized pericallos al branches. An intact anterior communicating artery is demonstrated. Middle cerebral arteries: Normal and symmetrical M1 segments are demonstrated bilaterally. No abnorma lities are seen on evaluation of the insular or opercular branches of the middle cerebral arteries. Intact [place] is demonstrated. IMPRESSION: 1. Short segment flow gap is noted at the distal LICA as it approaches its skull base foramina. This may be artifactual in nature, however, further evaluation with MRA neck with intravenous contrast or CTA head and neck should be considered for further evaluation to determine whether or not a stenosis is present in this location. 2. No additional abnormality on MRA head. Signer Name: Jona Wesley MD Signed: 03/13/2021 10:50 AM Workstation Name: [id number]
--- NOTE | 2021-03-13 11:09 | Magnetic Resonance Report ---
MRI BRAIN WITHOUT CONTRAST INDICATION / CLINICAL INFORMATION: Patient presented with dizziness and balance disturbance. TECHNIQUE: Multiplanar, multisequence MR images of the brain were obtained. COMPARISON: None available. FINDINGS: BRAIN / INTRACRANIAL CONTENTS: Ventricles and cortical sulci are normal in size and configuration. Th ere is no mass effect. No evidence of intracranial hemorrhage or extra-axial fluid collection is seen . No significant areas of abnormal brain parenchymal signal intensity are identified. There is no ind ication of remote cortical infarction. Diffusion weighted scans are negative. There is no indication of acute ischemic injury. The brainstem and cerebellum have an unremarkable appearance. MIDLINE STRUCTURES:No abnormalities are seen to involve the pituitary gland. Pineal region has an unr emarkable appearance. CRANIOCERVICAL JUNCTION: No abnormalities are identified at the craniocervical junction. VASCULAR FLOW-VOIDS: Normal flow-voids are present within the major intracranial vessels. ORBITS: The orbits have an unremarkable appearance. SINUSES / MASTOIDS: There is no indication of inflammatory disease in the paranasal sinuses or mastoi d air cells. IMPRESSION: 1. No significant abnormality on MRI brain. Signer Name: Jona Wesley MD Signed: 03/13/2021 11:05 AM Workstation Name: [id number]
[2021-03-13] MEDS: IPRATROPIUM/ALBUTEROL SULFATE 3 ML AMPUL.NEB IH SCH ×2 (14:03→14:08)
[2021-03-13 15:56] VITALS: BP 144/77
--- NOTE | 2021-03-13 16:34 | Event Note ---
Date: 03/13/21 Patient seen and examined This is the second visit after midnight Patient was admitted for dizziness MRI brain showed no acute process Patient states that her dizziness has improved Vitals noted and stable, patient has no focal sensorimotor deficit, S1 and S2 positive, CTABL MRI brain report noted and suggested to obtain a CTA to neck Neurology consulted, will follow recommendation Patient noted to have low MCV, will order for iron panel Patient will be discharged home if CTA neck is normal and cleared by physical therapy It took me about 28 minutes to reevaluate and reasses this patient, discussed with RN/CM, review medical documents, lab results, imaging, medication list and placing order.
--- NOTE | 2021-03-13 17:04 | Cat Scan Report ---
CT angio neck INDICATION / CLINICAL INFORMATION: 36 years Female; MAIN. TECHNIQUE: Thin cut axial images obtained through the head during IV bolus contrast administration. S agittal, coronal, and 3 plane MIP reconstructions performed by the technologist. NASCET type criteria used evaluate stenoses. All CT scans at this location are performed using CT dose reduction for ALAR A by means of automated exposure control. COMPARISON: None available. FINDINGS: CAROTID ARTERIES: There is no significant stenosis involving the cervical carotid arteries by NASCET criteria. VERTEBRAL ARTERIES: The vertebral arteries also demonstrate appropriate caliber without evidence of s ignificant focal narrowing at. ARCH: There is no significant stenosis involving the origins of the arch of vessels. ADDITIONAL FINDINGS: There are a few scattered cervical and axillary lymph nodes which are nonspecifi c and may be reactive in this patient. IMPRESSION: There is no significant stenosis involving the cervical carotid or vertebral arteries by NASCET crite . Signer Name: Live Sen MD Signed: 03/13/2021 5:00 PM Workstation Name: [id number]
[2021-03-13 17:05] LABS: Bilirubin,Urine NEG (Negative); Blood,Urine NEG (Negative); Color,Urine Straw (Yellow); Protein,Urine <15 mg/dL mg/dL (Negative); Urobilinogen,Urine < 2.0 mg/dL (<2.0)
--- NOTE | 2021-03-13 17:08 | Cat Scan Report ---
CT angio head INDICATION / CLINICAL INFORMATION: 36 years Female; CVA. TECHNIQUE: Thin cut axial images obtained through the head during IV bolus contrast administration. S agittal, coronal, and 3 plane MIP reconstructions performed by the technologist. NASCET type criteria used evaluate stenoses. Automated exposure control utilized for radiation reduction purposes. COMPARISON: None available. FINDINGS: INTERNAL CAROTID ARTERIES: There is no significant stenosis involving distal internal carotid arterie s by NASCET criteria. VERTEBROBASILAR SYSTEM: The vertebrobasilar system also demonstrate appropriate caliber without signi ficant focal narrowing at. CEREBRAL ARTERIES: The proximal cerebral arteries and adjacent segments appear to demonstrate appropr iate caliber without ossific and focal narrowing or CTA evidence of large vessel occlusion. ANEURYSM: None identified. ADDITIONAL FINDINGS: Remainder of the surrounding soft tissues are grossly normal. IMPRESSION: No significant abnormality on this CTA of the head. Signer Name: Live Sen MD Signed: 03/13/2021 5:04 PM Workstation Name: [id number]
[2021-03-13 18:27] LABS: Iron 51 ug/dL (37-170); Total Iron Binding Capacity 301 mcg/dL (250-450)
--- NOTE | 2021-03-14 08:34 | Discharge Summary ---
Providers - Providers Date of Admission: 03/13/21 04:47 Date of discharge: 03/13/21 Attending physician: PAVITHRA FITZGERALD 03/13/21 Consult to Physician [CONS] Routine Comment: Consulting Provider: MELLISSA SHIPLEY Physician Instructions: Reason For Exam: Dizziness 03/13/21 05:39 Occupational Therapy Evaluate and Treat [CONS] Routine Comment: Reason For Exam: Neuro deficits Physical Therapy Evaluation and Treat [CONS] Routine Comment: Reason For Exam: Neuro deficits Primary care physician: [employer] Hospitalization Condition: Good Pertinent studies: Chest x-ray, head CT, chest CT, brain MRI, head MRA, head neck CTA Hospital course: 36-year-old female with a history of sickle cell disease was brought to the ER today with a primary complaint of feeling dizzy off-balance along with shortness of breath, and difficulty with taking a deep inspiration for 2 days. In the emergency room initial CT scan showed no acute intracranial abnormality. MRI brain is unremarkable. MRA is suggested of obscure segment in L.ICA proximal. Echo is 60-65% EF. CTA head and neck was normal, CTA chest showed no PE Her h/h was stable, patient was tolerating diet and was resting on room air CXR no infiltrates. Patient was evaluated by neurologist and physical therapy Her symptom improved and was able to ambulate without any difficulty. Patient was recommended to follow-up outpatient PT OT She was then discharged home in stable condition with outpatient follow-up. Disposition: TO HOME OR SELFCARE Final Discharge Diagnosis (Prints w/discharge instructions): Benign positional vertigo -resolved. Sickle cell disease. Obesity. SOB, resolved Time spent for discharge: 33 minutes Core Measure Documentation - Palliative Care Palliative Care/ Comfort Measures: Not Applicable - Core Measures Any of the following diagnoses?: none Exam - Physical Exam Narrative exam: GENERAL: well-developed obese -[place] female lying on bed appeared to be in no discomfort. HEENT: Normocephalic. Atraumatic. No conjunctival congestion or icterus. Patient has moist mucous membranes. NECK: Supple. Trachea midline. CHEST/LUNGS: Clear to auscultated bilaterally, breathing nonlabored. No wheezes crackles or rhonchi. HEART/CARDIOVASCULAR: Regular in rate and rhythm. S1 and S2 positive. ABDOMEN: Abdomen is soft, nontender. Patient has normal bowel sounds. SKIN: There is no rash. Warm and dry. NEURO: No focal motor deficit. Follows command. MUSCULOSKELETAL: No joint effusion or tenderness. EXTRIMITY: No edema, no cyanosis or clubbing. PSYCH: Cooperative. - Constitutional Vitals: Temp Pulse Resp BP Pulse Ox 98.5 F 82 18 144/77 100 03/13/21 15:45 03/13/21 17:18 03/13/21 15:45 03/13/21 15:45 03/13/21 15:45 Plan Activity: advance as tolerated Weight Bearing Status: Weight Bear as Tolerated Diet: low fat, low cholesterol Additional Instructions: Repeat CBC in 1 week. Follow-up outpatient physical therapy if vertigo/dizziness persists Follow up with: PRIMARY CAREMD [Primary Care Provider] - 3-5 Days SABRINA NUÑEZ MD [Staff Physician] - 7 Days
[2021-03-14] MEDS ORDERED: CLOPIDOGREL 75 MG TAB PO SCH (10:00)
== END 2021-03-13 19:07 | disposition home or self-care (01) ==
LOC: ED 22:44 → 4A 03-13 04:47
PROVIDERS: ADMIT Hospitalist; ATTEND Internal Medicine
DX: D57.00 Hb-SS disease with crisis, unspecified (principal); R06.02 Shortness of breath; I73.9 Peripheral vascular disease, unspecified; R42 Dizziness and giddiness; R26.9 Unspecified abnormalities of gait and mobility; E66.9 Obesity, unspecified; R29.700 NIHSS score 0; R51.9 Headache, unspecified; Z98.891 History of uterine scar from previous surgery; Z79.899 Other long term (current) drug therapy; Z98.890 Other specified postprocedural states; Z68.32 Body mass index [BMI] 32.0-32.9, adult
CPT/HCPCS: 36415; 70450; 70496; 70498; 70544; 70551; 71046; 71275; 80053; 81001; 82550; 83550; 84484; 84703; 85025; 85045; 85379; 85610; 87641; 93005; 93306; 94640; 96361; 96372; 96374; 97161; 99285; G0378; J1170; J1644; J7120; Q9967

== ENCOUNTER 2021-09-24 17:37 | Emergency (ER) | payer MEDICAID | END 2021-09-24 19:37 | disposition left against medical advice (07) | LOC: ED 17:37 | DX: E87.5 Hyperkalemia (principal); Z53.21 Procedure and treatment not carried out due to patient leaving prior to being seen by health care provider ==